=== PATIENT | female | born 2005 | race Caucasian/White ===

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

== ENCOUNTER 2024-02-03 15:37 | Emergency (ER) | payer OTHER, SELFPAY ==
[2024-02-03 15:51] VITALS: BP 115/83; PULSE 91; RESP 16; TEMP 37.3; O2SAT 98; BMI 23.5
--- NOTE | 2024-02-03 16:00 | ED_ITS ---
HPI - General Adult General Chief complaint: Back Pain/Injury Stated complaint: lower back pain Time Seen by Provider: 02/03/24 17:13 Source: patient Mode of arrival: ambulatory Limitations: no limitations History of Present Illness ED Provider: Lance Roberts PA-C HPI narrative: 18-year-old female presents to the ER for evaluation of severe right-sided flank pain, a foul smell to her urine that started late last night and worsened this morning. She reports the pain in the right flank is worse with any movement, it is constant and throbbing in nature. He has been getting worse. She reports urinary urgency and frequency along with a foul smell to her urine. She has no hematuria or dysuria. No fevers or chills. No nausea, vomiting, abdominal pain. No vaginal discharge. Denies chance of . MD complaint: Right flank pain Onset (ago): hour(s) Location: back Radiation: non-radiation Severity: severe Quality: aching Relieving factors: none Exacerbating factors: movement Treatments prior to arrival: none Related Data Previous Rx's ?Medication ?Instructions ?Recorded ibuprofen 400 mg tablet 400 mg PO Q8H PRN pain #10 tabs 02/01/21 lidocaine 5 % topical patch 1 patch topical DAILY #15 ea 02/01/21 (Lidoderm) ibuprofen 600 mg tablet 600 mg PO Q8H PRN fever or pain 02/03/24 #14 tabs levofloxacin 500 mg tablet 500 mg PO DAILY #7 tabs 02/03/24 oxycodone 5 mg tablet 5 mg PO BID PRN severe pain (scale 02/03/24 score 7-10) #4 tabs Allergies Allergy/AdvReac Type Severity Reaction Status Date / Time No Known Allergies Allergy Verified 02/03/24 15:52 Review of Systems 2 Review of Systems: Yes all other systems are reviewed and are negative [facility] Social History Social History Alcohol intake: never Patient Tobacco Use Status: Never used Tobacco Substance Use Type: Marijuana Advance Directives: No Advance Directives Information Provided: No Physical Exam ED Vital Signs: Vital Signs - 24 hr 02/03/24 15:51 Temperature 99.2 F Pulse Rate 91 Respiratory Rate 16 Blood Pressure 115/83 Pulse Oximetry 98 Oxygen Delivery Method Room Air BMI result Body Mass Index 23.5 Appearance: Alert. Oriented X3. Patient tearful and appears uncomfortable Head: normocephalic, atraumatic. Eyes: Pupils equal, round and reactive to light. ENT: Pharynx normal. No tonsillar swelling or exudate. Neck: Normal inspection. Neck supple. CVS: Normal heart rate and rhythm. Pulses normal. Respiratory: No respiratory distress. Breath sounds normal. Abdomen: Soft and nontender. +BS x4 positive CVA tenderness on the right side. Pelvic deferred Skin: Skin warm and dry. Normal skin color. Normal skin turgor. No rashes. Extremities: No lower extremity edema. No joint swelling. Neuro/psych: Oriented X 3. Grossly normal, nonfocal Course Course Course Narrative: This is a Rapid Medical Examination (RME) performed by Mercy Trevino PA-C in triage. Full HPI, ROS, assessment and treatment plan per primary provider in the Main ED. 18 yo female here for eval of right flank pain and foul odor to urine upon waking this morning. assoc nausea w/o vomiting. denies fever, chills. also reports pain under L breast on breathing in. denies chest pain, sob. no recent travel/ long car rides. + no cvat. Plan: labs, ua, u preg, cxr Medications Administered Discontinued Medications Generic Name Dose Route Start Last Admin Trade Name Coryq PRN Reason Stop Dose Admin Acetaminophen 975 mg 02/03/24 17:19 02/03/24 17:58 Acetaminophen 325 Mg Tablet PO 02/03/24 17:20 975 mg ONCE ONE Administration Ketorolac Tromethamine 30 mg 02/03/24 17:19 02/03/24 17:59 Ketorolac Tromethamine 30 Mg/Ml Vial IM 02/03/24 17:20 30 mg ONCE ONE Administration Levofloxacin 500 mg 02/03/24 17:19 02/03/24 17:58 Levofloxacin 500 Mg Tablet PO 02/03/24 17:20 500 mg ONCE ONE Administration Medical Decision Making Medical Decision Making [facility] Narrative: 18-year-old female presents to the ER for evaluation of severe right flank pain and a foul smell to her urine. She has CVA tenderness on the right side. She has no nausea or vomiting. No fever or chills. Her vital signs are stable today. She is tearful with examination. Her lab workup today shows no leukocytosis, normal renal function. Her urinalysis is positive for infection. No evidence of sepsis at this time. She was given antibiotics and pain control while in the ER with improvement in her symptoms. Holding off on imaging as she appears plenty clinically improved. Comfortable discharge home with oral antibiotics, return precautions were discussed. Differential Diagnosis Differential Diagnoses: The differential diagnosis associated with the presentation includes Acute pyelonephritis, kidney stone, UTI, acute cholecystitis, muscle strain, STI Admission/Observation Consideration of admission/observation: Escalation of care including admission/observation considered Lab Data MDM Lab Attestation statement: I reviewed the patient's lab results. No leukocytosis, normal renal function, positive UA for infection 02/03/24 16:42 02/03/24 16:42 Labs: Lab Results 02/03/24 02/03/24 Range/Units 16:40 16:42 WBC 6.7 (4.8-10.8) X10*3/uL RBC 4.12 L (4.20-5.50) X10*6/uL Hgb 12.1 (12.0-16.0) g/dl Hct 35.5 L (37.0-47.0) % MCV 86.2 (80.0-98.0) fL MCH 29.4 (27.0-33.0) pg MCHC 34.1 (31.0-35.0) g/dl RDW 11.7 (11.0-16.0) % Plt Count 354 (160-400) X10*3/uL MPV 9.5 (9.4-12.3) fL Immature Gran % (Auto) 0.3 (0.0-0.4) % Neut % (Auto) 60.9 (45-73) % Lymph % (Auto) 28.1 (20-40) % [place] % (Auto) 8.1 (2-11) % Eos % (Auto) 2.0 (0-4) % Baso % (Auto) 0.6 (0-2) % Lymph # (Auto) 1.9 (1.2-4.9) X10*3/uL [place] # (Auto) 0.5 (0.1-1.2) X10*3/uL Eos # (Auto) 0.1 (0.0-0.4) X10*3/uL Baso # (Auto) 0.0 (0.0-0.2) X10*3/uL Abs Immat Gran (auto) 0.02 (0.00-0.03) X10*3/uL Absolute Neuts (auto) 4.1 (2.0-8.3) x10*3/uL Absolute Nucleated RBC 0.000 (0.0-0.012) X10*3/uL Nucleated RBC % (auto) 0.0 (0.0-0.2) /100WBC PT 13.1 (11.1-13.3) SEC INR 1.1 (0.9-1.1) Sodium 139 (135-145) mmol/L Potassium 4.0 (3.3-5.1) mmol/L Chloride 105 (96-108) mmol/L Carbon Dioxide 27 (22-29) mmol/L Anion Gap 11 L (12-20) BUN 13 (9-16) mg/dL Creatinine 0.63 (0.5-1.4) mg/dL Estim Creat Clear Calc 108.4 Estimated GFR > 60 Random Glucose 86 (60-115) mg/dL Calcium 9.7 (8.4-10.2) mg/dL Magnesium 2.1 (1.6-2.6) mg/dL Total Bilirubin 0.4 (0.0-1.0) mg/dL AST 13 (5-31) U/L ALT 10 (0-31) U/L Alkaline Phosphatase 64 (39-117) U/L Total Protein 7.7 (6.5-8.0) g/dL Albumin 4.4 (3.5-5.0) g/dL Urine Color Yellow Urine Appearance Cloudy Urine pH 6.0 (5.0-9.0) Ur Specific [place] >= 1.030 H (1.005-1.025) Urine Protein 100 (2+) H (Neg-Trace) mg/dL Urine Glucose (UA) Negative (Negative) mg/dL Urine Ketones Trace (Negative) mg/dL Urine Blood Large (3+) H (Negative) Urine Nitrite Positive H (Negative) Ur Leukocyte Esterase Small (1+) H (Negative) Urine RBC >20 H (0-2) /HPF Urine WBC 21-50 H (0-5) /HPF Ur Squamous Epith Cells 3-5 (0-2) /HPF Urine Bacteria 1+ (None Seen) Hyaline Casts 0-2 (0-2) /LPF Urine Test NEGATIVE (NEGATIVE) External Record Review External record reviewed: Outpatient record and Prior outpatient labs Tests considered The following testing was considered but not selected: CT scan of her abdomen verses ultrasound of the right kidney were considered however patient appeared improved after initial treatment and is stable for discharge home without imaging today Prescription Management I considered prescription management with: Pain Medication and Antibiotic Critical Care Time Critical Care Time Critical Care Time: No Discharge Plan Discharge Clinical Impression: UTI (urinary tract infection) Patient Disposition: Home, Self-Care Instructions: Urinary Tract Infection in Women (DC) Additional Instructions: Your urine test showed you have a urinary tract infection. Your given 1st dose of oral antibiotics here in the emergency department. Next dose is due in 24 hours. Take the prescribed anti-inflammatory, ibuprofen, as needed for [id number] pain. Take the prescribed oxycodone as needed for severe pain only. Drink plenty of fluids and stay hydrated. No sexual activity until you have completed your treatment and all her symptoms are completely resolved. Follow-up with your doctor. If you develop new or worsening symptoms call 911 or come back to the ER for further evaluation. Prescriptions: New levofloxacin 500 mg tablet 500 mg PO DAILY Qty: 7 0RF ibuprofen 600 mg tablet 600 mg PO Q8H PRN (Reason: fever or pain) Qty: 14 0RF oxycodone 5 mg tablet 5 mg PO BID PRN (Reason: severe pain (scale score 7-10)) Qty: 4 0RF Rx Instructions: Partial Fill upon patient request. No Action ibuprofen 400 mg tablet 400 mg PO Q8H PRN (Reason: pain) Qty: 10 0RF lidocaine [Lidoderm] 5 % adhesive patch,medicated 1 patch topical DAILY Qty: 15 0RF Rx Instructions: leave on most painful area for up to 12 hrs Stand Alone Forms: Work/School Release Interventions: ED Discharge Assessment Last Done: 02/03/24 18:27 Discharge Date/Time: 02/03/24 18:27 Print Language: Slovak
[2024-02-03 16:48] LABS: MANUAL DIFF FLAG NO
[2024-02-03 16:50] LABS: Basophils Percent Auto 0.6 % (0-2); Eosinophils Absolute Auto 0.1 X10*3/uL (0.0-0.4); Hematocrit 35.5 % (37.0-47.0); Hemoglobin 12.1 g/dl (12.0-16.0); Imm Gran Abs Auto 0.02 X10*3/uL (0.00-0.03); Imm Gran Pct Auto 0.3 % (0.0-0.4); Lymphocytes Absolute Auto 1.9 X10*3/uL (1.2-4.9); Lymphocytes Percent Auto 28.1 % (20-40); Mean Corpuscular HGB Conc 34.1 g/dl (31.0-35.0); Mean Corpuscular Hemoglobin 29.4 pg (27.0-33.0); Mean Corpuscular Volume 86.2 fL (80.0-98.0); Mean Platelet Volume 9.5 fL (9.4-12.3); Monocytes Absolute Auto 0.5 X10*3/uL (0.1-1.2); Monocytes Percent Auto 8.1 % (2-11); Neutrophils Absolute Auto 4.1 x10*3/uL (2.0-8.3); Neutrophils Percent Auto 60.9 % (45-73); Platelet Count 354 X10*3/uL (160-400); Red Blood Count 4.12 X10*6/uL (4.20-5.50); Red Cell Distribution Width 11.7 % (11.0-16.0); White Blood Count 6.7 X10*3/uL (4.8-10.8)
[2024-02-03 16:53] LABS: Appearance Urine Cloudy; Color Urine Yellow; Glucose Urine UA Negative (Negative); Leukocyte Esterase Urine Small (1+) (Negative); Nitrite Urine Positive (Negative); Specific Gravity - Urine >= 1.030 (1.005-1.025); UMIC TRIGGER UACC YES; Urine Blood Large (3+) (Negative); Urine Ketones Trace mg/dL (Negative); Urine Protein 100 (2+) mg/dL (Neg-Trace)
[2024-02-03 16:54] LABS: UPreg QC Valid YES; Urine Pregnancy NEGATIVE (NEGATIVE)
[2024-02-03 16:59] LABS: Bacteria Urine 1+ (None Seen); Hyaline Casts Urine 0-2 /LPF (0-2); RBC Urine >20 /HPF (0-2); UACC Culture Trigger YES; WBC Urine 21-50 /HPF (0-5)
[2024-02-03 17:03] LABS: Alanine Aminotransferase 10 U/L (0-31); Albumin Level 4.4 g/dL (3.5-5.0); Alkaline Phosphatase 64 U/L (39-117); Anion Gap 11 (12-20); Aspartate Amino Transferase 13 U/L (5-31); Bilirubin Total 0.4 mg/dL (0.0-1.0); Blood Urea Nitrogen 13 mg/dL (9-16); Calcium 9.7 mg/dL (8.4-10.2); Carbon Dioxide 27 mmol/L (22-29); Chloride 105 mmol/L (96-108); Creatinine Clr Calc Pharmacy 108.4; Estimated Glomerular Filt Rate > 60; Glucose Random 86 mg/dL (60-115); Magnesium 2.1 mg/dL (1.6-2.6); Sodium 139 mmol/L (135-145); Total Protein 7.7 g/dL (6.5-8.0)
[2024-02-03 17:17] LABS: INTERNATIONAL NORM RATIO 1.1 (0.9-1.1); Prothrombin Time 13.1 SEC (11.1-13.3)
[2024-02-03] MEDS: Acetaminophen 325 MG TABLET 975 MG PO (17:58)
[2024-02-03] MEDS: levoFLOXacin 500 MG TABLET PO (17:58)
[2024-02-03] MEDS: Ketorolac Tromethamine 30 MG/ML VIAL IM (17:59)
[2024-02-03 18:27] VITALS: BP 115/83; PULSE 91; RESP 16; TEMP 37.3; O2SAT 98
== END 2024-02-03 18:27 | disposition home or self-care (01) ==
PROVIDERS: Physician Assistant Medical; Emergency Provider Emergency Medicine
DX: N39.0 Urinary tract infection, site not specified (principal); B96.20 Unspecified Escherichia coli [E. coli] as the cause of diseases classified elsewhere; R07.9 Chest pain, unspecified
CPT/HCPCS: 36415; 80053; 81001; 81025; 83735; 85025; 85610; 87086; 87088; 87186; 96372; 99283; 99284; J1885

== ENCOUNTER 2024-10-16 18:08 | Emergency (ER) | payer SELFPAY ==
[2024-10-16 18:31] VITALS: BP 119/74; PULSE 97; RESP 16; TEMP 36.7; O2SAT 97; BMI 23.5
--- NOTE | 2024-10-16 18:32 | ED_ITS ---
HPI - General Adult General Chief complaint: General Medical Stated complaint: bad cramps Time Seen by Provider: 10/16/24 22:08 Source: patient Mode of arrival: ambulatory Limitations: no limitations History of Present Illness ED Provider: DR. Austin HPI narrative: 19-year-old female presented with lower abdominal cramps, frequency urination, and and observed white creamy thick vaginal for the past few days. Patient had a new sexual partner for the past month has been practicing unprotected sex with him, patient stated that STD is not likely but like to be tested for. Patient had of chlamydia infection at age of 16 that patient claimed it was treated sufficiently. Last bowel movement was at this morning was normal, never had intra-abdominal surgery, no nausea, no vomiting, no fever, no chills. Related Data Previous Rx's ?Medication ?Instructions ?Recorded ibuprofen 400 mg tablet 400 mg PO Q8H PRN pain #10 tabs 02/01/21 lidocaine 5 % topical patch 1 patch topical DAILY #15 ea 02/01/21 (Lidoderm) ibuprofen 600 mg tablet 600 mg PO Q8H PRN fever or pain 02/03/24 #14 tabs levofloxacin 500 mg tablet 500 mg PO DAILY #7 tabs 02/03/24 oxycodone 5 mg tablet 5 mg PO BID PRN severe pain (scale 02/03/24 score 7-10) #4 tabs doxycycline hyclate 100 mg tablet 100 mg PO BID #14 tabs 10/16/24 Allergies Allergy/AdvReac Type Severity Reaction Status Date / Time No Known Allergies Allergy Verified 10/16/24 18:32 Review of Systems 2 Review of Systems: All other systems are reviewed and are negative Constitutional: Reports as per HPI and Reports no additional constitutional complaints Eyes: Reports as per HPI and Reports no additional eye complaints Reports system reviewed and no additional complaints, except as documented Cardiovascular: Reports as per HPI and Reports no additional cardiovascular complaints Respiratory: Reports as per HPI and Reports no additional respiratory complaints Gastrointestinal: Reports as per HPI and Reports no additional gastrointestinal complaints Genitourinary: Reports no additional female genitourinary complaints Musculoskeletal: Reports no additional musculoskeletal complaints Skin/Breast: Reports system reviewed and no additional complaints, except as docu Psychiatric: Reports no additional psychiatric complaints Endocrine: Reports no additional endocrine complaints Hematologic/Lymphatic: Reports no additional hematologic/lymphatic complaints Allergic/Immunologic: Reports no additional allergic/immunologic complaints Reports system reviewed and no additional complaints, except as documented and Reports Abnormal speech present [facility] Social History Social History Alcohol intake: never Patient Tobacco Use Status: Never used Tobacco Smoked in Last 30 Days: No Use of substances other than those prescribed or required for medical reasons: Unknown Substance Use Type: Marijuana Advance Directives: No Patient : No Physical Exam ED Vital Signs: Vital Signs - 24 hr 10/16/24 18:31 10/16/24 21:23 Temperature 98.1 F 98.7 F Pulse Rate 97 102 H Respiratory Rate 16 16 Blood Pressure 119/74 131/83 Pulse Oximetry 97 100 Oxygen Delivery Method Room Air Room Air BMI result Body Mass Index 23.5 Appearance: Alert. Oriented X3. No acute distress. Head: Normal external exam. Normocephalic. Atraumatic. No Tovar signs noted. No raccoon eyes noted Eyes: PERRLA. EOMI. Conjunctiva and sclera normal. Eyelids normal. ENT: TM's Normal. Pharynx normal. Uvula midline. Moist mucous membranes. No trismus noted. No drooling noted. No muffled voice noted. Neck: Normal inspection. Neck supple. FROM. No adenopathy. Thyroid Normal. No meningeal signs. No neck mass noted. CVS: Normal heart rate and rhythm. Heart sound normal. No murmurs noted. Pulses normal throughout. Respiratory: No respiratory distress. Painless inspiration. Breath sounds normal. No wheezes/rales/rhonchi noted. Chest nontender. No accessory muscle usage noted or decreased air movement noted. Abdomen: Soft and nontender. Bowel sounds normal in all 4 quadrants. No distention noted. No organomegaly noted. No visible injury noted. Pelvic exam: In the presence of RN female title assistant in room patient had a pelvic exam which revealed a wide creamy discharge from the vagina, no rash or vesicle was observed, no tenderness, no CMT. Back: No CVA tenderness. Full range of motion noted. Skin: Skin warm and dry. Normal skin color. Normal skin turgor. No rashes/lesions/lacerations noted. Extremities: No lower extremity edema. Extremities exhibit normal range of motion. Extremities nontender. Neuro: Oriented X 3. Cranial nerve exam: II-XII are grossly intact No motor deficit. No sensory deficit. Reflexes normal. Course Course Course Narrative: This is a rapid medical exam performed by Amna Dumont NP: Additional HPI, ROS, PE not included below will be deferred to primary provider. Patient is a 19-year-old female presenting to the ED with complaint of lower abdominal cramping and milky white vaginal discharge x 5 days. LMP end of august into September. Reports new sexual partner, would like to be tested for STI. Urinary frequency. Plan: UA, Upreg, labs Reevaluation(s) Reevaluation #1: Urinary symptoms with vaginal discharge, and will be tested for syphilis, HIV, GC, and chlamydia. Because patient has a new partner and also history of chlamydia will initiate treatment tonight and referred to OBGYN Dr. Winter to follow-up with the patient. Time: 22:36 Medical Decision Making Differential Diagnosis Differential Diagnoses: The differential diagnosis associated with the presentation includes (UTI, pyelonephritis, HIV, hepatitis, GC, chlamydia.) Admission/Observation Consideration of admission/observation: Escalation of care including admission/observation considered Lab Data [facility] Lab Attestation statement: I reviewed the patient's lab results. 10/16/24 18:50 10/16/24 18:50 Labs: Lab Results 10/16/24 Range/Units 18:50 WBC 7.2 (4.8-10.8) X10*3/uL RBC 4.25 (4.20-5.50) X10*6/uL Hgb 12.0 (12.0-16.0) g/dl Hct 36.0 L (37.0-47.0) % MCV 84.7 (80.0-98.0) fL MCH 28.2 (27.0-33.0) pg MCHC 33.3 (31.0-35.0) g/dl RDW 12.6 (11.0-16.0) % Plt Count 335 (160-400) X10*3/uL MPV 9.7 (9.4-12.3) fL Immature Gran % (Auto) 0.1 (0.0-0.4) % Neut % (Auto) 69.2 (45-73) % Lymph % (Auto) 22.3 (20-40) % [place] % (Auto) 7.4 (2-11) % Eos % (Auto) 0.4 (0-4) % Baso % (Auto) 0.6 (0-2) % Lymph # (Auto) 1.6 (1.2-4.9) X10*3/uL [place] # (Auto) 0.5 (0.1-1.2) X10*3/uL Eos # (Auto) 0.0 (0.0-0.4) X10*3/uL Baso # (Auto) 0.0 (0.0-0.2) X10*3/uL Abs Immat Gran (auto) 0.01 (0.00-0.03) X10*3/uL Absolute Neuts (auto) 5.0 (2.0-8.3) x10*3/uL Absolute Nucleated RBC 0.000 (0.0-0.012) X10*3/uL Nucleated RBC % (auto) 0.0 (0.0-0.2) /100WBC Sodium 141 (135-145) mmol/L Potassium 3.4 (3.3-5.1) mmol/L Chloride 104 (96-108) mmol/L Carbon Dioxide 27 (22-29) mmol/L Anion Gap 13 (12-20) BUN 9 (9-16) mg/dL Creatinine 0.64 (0.5-1.4) mg/dL Estim Creat Clear Calc 121.0 Estimated GFR > 60 Random Glucose 100 (60-115) mg/dL Calcium 9.6 (8.4-10.2) mg/dL Beta HCG, Quant < 2 mIU/mL Urine Color Yellow Urine Appearance Clear Urine pH 6.0 (5.0-9.0) Ur Specific [place] 1.015 (1.005-1.025) Urine Protein Negative (Neg-Trace) mg/dL Urine Glucose (UA) Negative (Negative) mg/dL Urine Ketones 15 (Negative) mg/dL Urine Blood Moderate (2+) H (Negative) Urine Nitrite Negative (Negative) Ur Leukocyte Esterase Small (1+) H (Negative) Urine RBC 11-20 H (0-2) /HPF Urine WBC 0-5 (0-5) /HPF Ur Squamous Epith Cells 3-5 (0-2) /HPF Urine Bacteria None Seen (None Seen) Hyaline Casts 0-2 (0-2) /LPF Discharge Plan Discharge Clinical Impression: Concern about STD in female without diagnosis Patient Disposition: Home, Self-Care Instructions: Safe Sex Practices for Adolescents (ED) Prescriptions: New doxycycline hyclate 100 mg tablet 100 mg PO BID Qty: 14 0RF No Action ibuprofen 400 mg tablet 400 mg PO Q8H PRN (Reason: pain) Qty: 10 0RF lidocaine [Lidoderm] 5 % adhesive patch,medicated 1 patch topical DAILY Qty: 15 0RF Rx Instructions: leave on most painful area for up to 12 hrs levofloxacin 500 mg tablet 500 mg PO DAILY Qty: 7 0RF ibuprofen 600 mg tablet 600 mg PO Q8H PRN (Reason: fever or pain) Qty: 14 0RF oxycodone 5 mg tablet 5 mg PO BID PRN (Reason: severe pain (scale score 7-10)) Qty: 4 0RF Rx Instructions: Partial Fill upon patient request. Referrals: Darin Winter MD [Physician] - Print Language: Czech
[2024-10-16 19:07] LABS: MANUAL DIFF FLAG NO
[2024-10-16 19:10] LABS: Appearance Urine Clear; Color Urine Yellow; Glucose Urine UA Negative (Negative); Leukocyte Esterase Urine Small (1+) (Negative); Nitrite Urine Negative (Negative); Specific Gravity - Urine 1.015 (1.005-1.025); UMIC TRIGGER UACC YES; Urine Blood Moderate (2+) (Negative); Urine Ketones 15 mg/dL (Negative); Urine Protein Negative (Neg-Trace)
[2024-10-16 19:15] LABS: Basophils Percent Auto 0.6 % (0-2); Eosinophils Percent Auto 0.4 % (0-4); Imm Gran Abs Auto 0.01 X10*3/uL (0.00-0.03); Imm Gran Pct Auto 0.1 % (0.0-0.4); Lymphocytes Absolute Auto 1.6 X10*3/uL (1.2-4.9); Lymphocytes Percent Auto 22.3 % (20-40); Mean Corpuscular HGB Conc 33.3 g/dl (31.0-35.0); Mean Corpuscular Hemoglobin 28.2 pg (27.0-33.0); Mean Corpuscular Volume 84.7 fL (80.0-98.0); Mean Platelet Volume 9.7 fL (9.4-12.3); Monocytes Absolute Auto 0.5 X10*3/uL (0.1-1.2); Monocytes Percent Auto 7.4 % (2-11); Neutrophils Percent Auto 69.2 % (45-73); Platelet Count 335 X10*3/uL (160-400); Red Blood Count 4.25 X10*6/uL (4.20-5.50); Red Cell Distribution Width 12.6 % (11.0-16.0); White Blood Count 7.2 X10*3/uL (4.8-10.8)
[2024-10-16 19:30] LABS: Anion Gap 13 (12-20); Blood Urea Nitrogen 9 mg/dL (9-16); Calcium 9.6 mg/dL (8.4-10.2); Carbon Dioxide 27 mmol/L (22-29); Chloride 104 mmol/L (96-108); Estimated Glomerular Filt Rate > 60; Glucose Random 100 mg/dL (60-115); Potassium 3.4 mmol/L (3.3-5.1); Sodium 141 mmol/L (135-145)
[2024-10-16 19:31] LABS: HCG Quantitative < 2 mIU/mL
[2024-10-16 19:41] LABS: Bacteria Urine None Seen (None Seen); Hyaline Casts Urine 0-2 /LPF (0-2); UACC Culture Trigger YES; WBC Urine 0-5 /HPF (0-5)
[2024-10-16 21:23] VITALS: BP 131/83; PULSE 102; RESP 16; TEMP 37.1; O2SAT 100
--- OUTSIDE RECORDS SUMMARY | 2024-10-16 21:38 | XMS_ITS | Clinical Summary ---
Author Organization [employer] Address [address] [place] [address] Care Team Providers Care [employer] Supervisor Name Role Phone Unavailable Primary Care Provider Unavailabl e Allergies No known active allergies Social History Tobacco Use Types Packs/Day Years Used Date Smoking Tobacco: Never Assessed Comments Unknown Sex and Gender Information Value Date Recorded Sex Assigned at Female 04/27/2022 10:26 AM EDT Legal Sex Female 10:26 AM EDT Gender Identity Female 06/15/2022 8:38 AM EST Sexual Orientation Straight 12/09/2022 3: 33 PM EDT Plan of Treatment Health Maintenance Due Date Last Done Comments Chlamydia and Gonorrhea Screening 2004 Depression Screening 2004 HIV Screening 2004 SDOH Screening 2004 Alcohol/Substance Use Screening 2016 Tobacco Screening 2016 Family Planning (PISQ) 2019 HPV Vaccines (1 - 3-dose series) 2019 Hepatitis C Screening 2022 DTaP/Tdap/Td Vaccines (1 - Tdap) 2023 Hepatitis B Vaccines (1 of 3 - 19+ 3-dose series) 2023 COVID-19 Vaccine (1 - 2023-2 5 season) 2024 Influenza Vaccine (#1) 2024 Zoster Vaccines (1 of 2) 2054 RSV Patients and Pa tients Aged 60 years or older (1 - 1-dose 75+ series) 2079 HIB Vaccines Aged Out No longer eligi ble based on patient's age to complete this topic Hepatitis A Vaccines Aged Out No long er eligible based on patient's age to complete this topic IPV Vaccines Aged Out No longer eligi ble based on patient's age to complete this topic Meningococcal Vaccine Aged Out No jeffrey navarro eligible based on patient's age to complete this topic Pneumococcal Vaccine: Pediat rics (0 to 5 Years) and At-Risk Patients (6 to 49) Years) Aged Out No longer eligible b ased on patient's age to complete this topic RSV under 20 months Aged Out No longe r eligible based on patient's age to complete this topic Rotavirus Vaccines Aged Out No longer eligible based on patient's age to complete this topic Insurance [employer] Member Subscriber Plan / Payer (Ef fective 2022-Present) Name:Evelyn Babcock Relation to Subscriber:Self Name:Evelyn Babcock Payer ID:Not on file Group ID:Not on file Type:Medicaid Address: [address] STANDARD
[2024-10-16] MEDS: Doxycycline Monohydrate 100 MG CAPSULE PO (22:48)
[2024-10-16] MEDS: cefTRIAXone sodium 500 MG VIAL IM (22:49)
[2024-10-16 22:54] VITALS: BP 00/00; PULSE 65; RESP 16; TEMP 37.1; O2SAT 95
[2024-10-17 08:33] LABS: Syphilis Screen Nonreactive (Nonreactive)
[2024-10-17 08:34] LABS: HBS Num1 4.25 mIU/mL (0-7.99); HBc Num1 0.31 S/CO (0.00-0.79); HBsAGNum1 0.57 S/CO (0.00-0.99); Hepatitis A Antibody IgM 0.17 Index (0-0.79); Hepatitis B Core Antibody Nonreactive (Nonreactive); Hepatitis B Surface Antigen Negative (Negative); ~HepC Num1 0.26 S/CO (0.00-0.79); ~Hepatitis A Antibody IgM Nonreactive (Nonreactive); ~Hepatitis B Surface Antibody NONREACTIVE (Nonreactive); ~Hepatitis C Antibody Nonreactive (Nonreactive)
[2024-10-17 09:03] LABS: CT PCR NOT DETECTED (Not Detect.); NG PCR NOT DETECTED (Not Detect.)
[2024-10-17 09:30] LABS: HIV AB/AG Nonreactive (Nonreactive)
== END 2024-10-16 22:56 | disposition home or self-care (01) ==
PROVIDERS: Registered Nurse Emergency; Emergency Provider Emergency Medicine
DX: R25.2 Cramp and spasm (principal); R35.0 Frequency of micturition; R10.2 Pelvic and perineal pain; Z20.2 Contact with and (suspected) exposure to infections with a predominantly sexual mode of transmission; Z79.899 Other long term (current) drug therapy
CPT/HCPCS: 36415; 80048; 81001; 84702; 85025; 86704; 86706; 86709; 86780; 86803; 87086; 87340; 87389; 87491; 87591; 96372; 99284; J0696

== ENCOUNTER 2024-11-11 20:23 | Emergency (ER) | payer OTHER, SELFPAY ==
--- NOTE | ~2024-11-11 | US_ITS ---
CLINICAL HISTORY: 6-7 wks by dates, pain and bleeding, HCG 29,000 US OB 1st Trimester transabdominal and transvaginal Comparison: None Findings: Single intrauterine . CRL: 0.36 cm. EGA: 6 weeks 1 day. EDINSON: 07/06/2025. Previously established gestational age: 6 weeks 5 day. Normal yolk sac . Cardiac activity: 127 bpm. No subchorionic bleed. Right ovary measures 3.8 x 3.1 x 2.3 cm and contains a 2.2 cm involuting cyst. Left ovary measures 1.9 x 1.7 x 1.5 cm and is normal in morphology. IMPRESSION: Single living intrauterine estimated six weeks 1 day gestational age by today's ultrasound criteria. This document has been electronically signed by: Cody Solorzano MD on 11/12/2024 00:15:31
--- NOTE | 2024-11-11 20:35 | ED.ABDPAIN ---
HPI - Abdominal Pain General Chief Complaint: Vaginal Bleeding Stated Complaint: cramps/ maybe 4wks? Time Seen by Provider: 11/11/24 22:04 History of Present Illness ED Provider: Aleksandra HAMPTON narrative: The patient is a 19-year-old female who had a positive home test on October 26. The start of her last menstrual period was on September 25. About 5 days ago she started to experience intermittent pelvic cramping. This was initially not associated with any other symptoms or any bleeding. However last night she had some vaginal bleeding and used pads throughout the night. The bleeding seemed to todd this morning as did the cramps but the cramps began this evening again and so she came to the emergency department. The patient has not yet had any care. She has an appointment on Wednesday for her 1st the at the [facility]. No fever, sweats, chills. She has never been before. She had been hoping to get . Related Data Previous Rx's ?Medication ?Instructions ?Recorded ibuprofen 400 mg tablet 400 mg PO Q8H PRN pain #10 tabs 02/01/21 lidocaine 5 % topical patch 1 patch topical DAILY #15 ea 02/01/21 (Lidoderm) ibuprofen 600 mg tablet 600 mg PO Q8H PRN fever or pain 02/03/24 #14 tabs levofloxacin 500 mg tablet 500 mg PO DAILY #7 tabs 02/03/24 oxycodone 5 mg tablet 5 mg PO BID PRN severe pain (scale 02/03/24 score 7-10) #4 tabs doxycycline hyclate 100 mg tablet 100 mg PO BID #14 tabs 10/16/24 Allergies Allergy/AdvReac Type Severity Reaction Status Date / Time No Known Allergies Allergy Verified 11/11/24 20:39 Review of Systems Review of Systems Yes all other systems are reviewed and are negative [facility] Social History Social History Alcohol intake: never Patient Tobacco Use Status: Never used Tobacco Smoked in Last 30 Days: No Use of substances other than those prescribed or required for medical reasons: No Substance Use Type: Marijuana Advance Directives: No Advance Directives Information Provided: No Patient : Yes Physical Exam ED Vital Signs: Vital Signs - 24 hr 11/11/24 20:36 11/11/24 22:07 11/12/24 00:33 Temperature 98.2 F 98.0 F 98.1 F Pulse Rate 103 H 91 82 Respiratory Rate 18 18 16 Blood Pressure 118/76 127/78 118/69 Pulse Oximetry 97 100 99 Oxygen Delivery Method Room Air Room Air Room Air 11/12/24 00:55 Temperature 98.1 F Pulse Rate 82 Respiratory Rate 16 Blood Pressure 118/69 Pulse Oximetry 99 Oxygen Delivery Method Room Air BMI result Body Mass Index 25.7 Const Other: The patient is a thin 19-year-old woman who was awake and alert. She does not appear in obvious acute distress HENMT Other: Face is symmetrical, mucous membranes are moist. Eyes General: appearance normal, both eyes and all related structures Neck Neck: Yes normal visual inspection and Yes full ROM Resp Effort & Inspection: normal respiratory effort Auscultation: clear to auscultation bilaterally Cardio Rate: regular rate Rhythm: regular rhythm Heart sounds: S1 normal heart sound present and S2 normal heart sound present GI Other: The abdomen is soft and nontender. There was no lower abdominal tenderness. Skin Other: Skin was dry and unremarkable Neuro Other: The patient is awake and alert, pleasant cooperative. Mental status is normal. Cranial nerves are grossly intact. She moves her extremities normally and appropriately. 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 deferred additional HPI, ROS, PE to primary provider. 19yo female with history of asthma here with one week of pelvic cramping, small amounts of vaginal bleeding since yesterday. Did home test which was positive, confirmed by [facility]. This is her first , First appt with [facility] on Wednesday. Has not had US to confirm IUP. Thinks she is around 6 weeks . LMP 09/25. Will obtain labs, UA, RH VSS Medical Decision Making Medical Decision Making MDM Narrative: The patient is a 19-year-old female who was with her 1st . Her last menstrual period began on September 25 which would give her an estimated gestational age of 6 weeks, 5 days. She presents with episodes of pelvic cramping intermittently over the last few days. She has also had some intermittent vaginal spotting which was somewhat worse last night. She felt better during the day today but had a recurrence of cramping this evening. Clinically the patient looks well. The patient is afebrile. Blood pressure is stable. Her heart rate at triage was 103, later was 82. Respiratory rate is normal. Oxygen saturations are excellent. She has a white count of 7.1 with a normal differential. Hemoglobin 11.8. Her beta hCG is 29,884. Blood type is Rh negative. A pelvic ultrasound shows a single living intrauterine estimated at 6 weeks 1 day gestational age by today's ultrasound criteria. There was no subchorionic bleeding. heart rate was measured at 127. Given that the patient's ultrasound shows a live intrauterine I do not think there is any acute intervention required. The patient is Rh negative and describes having had some vaginal spotting. Since she is under 12 weeks I do not think any decision about RhoGAM needs to be made tonight. She has an appointment on Wednesday for her 1st care appointment. I think she is appropriate for discharge to keep this appointment. Lab Data 11/11/24 20:46 11/11/24 20:46 Labs: Lab Results 11/11/24 Range/Units 20:46 WBC 7.1 (4.8-10.8) X10*3/uL RBC 4.09 L (4.20-5.50) X10*6/uL Hgb 11.8 L (12.0-16.0) g/dl Hct 33.8 L (37.0-47.0) % MCV 82.6 (80.0-98.0) fL MCH 28.9 (27.0-33.0) pg MCHC 34.9 (31.0-35.0) g/dl RDW 12.1 (11.0-16.0) % Plt Count 391 (160-400) X10*3/uL MPV 9.5 (9.4-12.3) fL Immature Gran % (Auto) 0.4 (0.0-0.4) % Neut % (Auto) 63.3 (45-73) % Lymph % (Auto) 27.2 (20-40) % Caroline % (Auto) 7.5 (2-11) % Eos % (Auto) 0.8 (0-4) % Baso % (Auto) 0.8 (0-2) % Lymph # (Auto) 1.9 (1.2-4.9) X10*3/uL Caroline # (Auto) 0.5 (0.1-1.2) X10*3/uL Eos # (Auto) 0.1 (0.0-0.4) X10*3/uL Baso # (Auto) 0.1 (0.0-0.2) X10*3/uL Abs Immat Gran (auto) 0.03 (0.00-0.03) X10*3/uL Absolute Neuts (auto) 4.5 (2.0-8.3) x10*3/uL Absolute Nucleated RBC 0.000 (0.0-0.012) X10*3/uL Nucleated RBC % (auto) 0.0 (0.0-0.2) /100WBC Sodium 138 (135-145) mmol/L Potassium 3.6 (3.3-5.1) mmol/L Chloride 106 (96-108) mmol/L Carbon Dioxide 22 (22-29) mmol/L Anion Gap 14 (12-20) BUN 9 (9-16) mg/dL Creatinine 0.51 (0.5-1.4) mg/dL Estim Creat Clear Calc 142.2 Estimated GFR > 60 Random Glucose 85 (60-115) mg/dL Calcium 9.6 (8.4-10.2) mg/dL Total Bilirubin 0.5 (0.0-1.0) mg/dL Direct Bilirubin 0.2 (0.0-0.5) mg/dL AST 16 (5-31) U/L ALT 17 (0-31) U/L Alkaline Phosphatase 53 (39-117) U/L Total Protein 7.6 (6.5-8.0) g/dL Albumin 4.5 (3.5-5.0) g/dL Beta HCG, Quant 11430 mIU/mL Urine Color Yellow Urine Appearance Turbid Urine pH 7.0 (5.0-9.0) Ur Specific [place] 1.020 (1.005-1.025) Urine Protein Negative (Neg-Trace) mg/dL Urine Glucose (UA) Negative (Negative) mg/dL Urine Ketones 80 (Negative) mg/dL Urine Blood Moderate (2+) H (Negative) Urine Nitrite Negative (Negative) Ur Leukocyte Esterase Trace H (Negative) Urine RBC >20 H (0-2) /HPF Urine WBC 0-5 (0-5) /HPF Ur Squamous Epith Cells 3-5 (0-2) /HPF Urine Bacteria None Seen (None Seen) Hyaline Casts 0-2 (0-2) /LPF Urine Test POSITIVE H (NEGATIVE) Blood Type B Negative Medications Administered Discontinued Medications Generic Name Dose Route Start Last Admin Trade Name Coryq PRN Reason Stop Dose Admin Acetaminophen 975 mg 11/11/24 22:54 11/11/24 22:56 Acetaminophen 325 Mg Tablet PO 11/11/24 22:55 975 mg ONCE ONE Administration Discharge Plan Discharge Clinical Impression: Pelvic cramping, Vaginal bleeding, 6 weeks gestation of Patient Disposition: Home, Self-Care Additional Instructions: Your ultrasound today shows that you have a single live with estimated gestational age of 6 weeks and 1 day. Your estimated date of delivery is 07/06/2025. Since your condition looks stable today please plan on following up with your 1st appointment tomorrow on Wednesday as scheduled. Please let them know about this visit. Your blood type is B negative. Please let them know at your appointment about your blood type. This will be relevant in the future. Return to the emergency room if significantly worse. Prescriptions: No Action ibuprofen 400 mg tablet 400 mg PO Q8H PRN (Reason: pain) Qty: 10 0RF lidocaine [Lidoderm] 5 % adhesive patch,medicated 1 patch topical DAILY Qty: 15 0RF Rx Instructions: leave on most painful area for up to 12 hrs doxycycline hyclate 100 mg tablet 100 mg PO BID Qty: 14 0RF levofloxacin 500 mg tablet 500 mg PO DAILY Qty: 7 0RF ibuprofen 600 mg tablet 600 mg PO Q8H PRN (Reason: fever or pain) Qty: 14 0RF oxycodone 5 mg tablet 5 mg PO BID PRN (Reason: severe pain (scale score 7-10)) Qty: 4 0RF Rx Instructions: Partial Fill upon patient request. Referrals: [facility] [Provider Group] Interventions: ED Discharge Assessment Last Done: 11/12/24 00:55 Discharge Date/Time: 11/12/24 00:56 Print Language: Mexican
[2024-11-11 20:36] VITALS: BP 118/76; PULSE 103; RESP 18; TEMP 36.8; O2SAT 97; BMI 25.7
--- OUTSIDE RECORDS SUMMARY | 2024-11-11 20:49 | XMS_ITS | Clinical Summary ---
Author Organization [employer] Address [address] [place] [address] Care Team Providers Care Emergency Room Doctor Name Role Phone Unavailable Primary Care Provider [...] HPV Vaccines (1 - 3-dose series) 2019 Meningococcal B Vaccine (1 o f 2 - Standard) 2020 Hepatitis C Screening 2022 DTaP/Tdap/Td Vaccines (1 [...] patient's age to complete this topic Insurance [employer] C3 Member Subscriber Plan / Payer (Ef fective 2022-Present) Name:Evelyn Babcock Relation to Subscriber:Self Name:Evelyn Babcock Payer ID:Not on file Group ID:Not on file Type:Medicaid Address: [place] [address] [place] [address] STANDARD Member Subscriber Plan / Payer (Ef fective 2022-Present) Name:Evelyn Babcock Relation to Subscriber:Self Name:Evelyn Babcock Payer ID:Not on file Group ID:Not on file Type:Medicaid Address: [address]
--- OUTSIDE RECORDS SUMMARY | 2024-11-11 20:49 | XMS_ITS | Clinical Summary ---
Author Organization [facility] Address [address] [place] [address] Phone Care Team Providers Care Machine Packer Name Role Phone Physician, No Pcp Primary Care Provider Unavaila ble Social History Tobacco Use Types Packs/Day Years Used Date Smoking Tobacco: Never Assessed Comments Unknown Sex and Gender Information Value Date Recorded Sex Assigned at Not on file Legal Sex Female 1:49 PM EDT Gender Identity Not on file Sexual Orientation Not on file Plan of Treatment Upcoming Encounters Date Type Department Care Team ([facility] st Contact Info) Description 11/13/2024 10:30 AM EDT Office Visit Obstetrics and Gynecology - [id number] [place] [address] Deepika Mcgee, [facility] [address] [place] [address] Health Maintenance Due Date Last Done Comments Gonorrhea/Chlamydia Screening 2004 Varicella Vaccines (1 of 2 - 13+ 2-dose series) 2017 HPV Vaccines (1 - 3-dose series) 2019 Meningococcal B Vaccine (1 o f 2 - Standard) 2020 DTaP,Tdap,and Td Vaccines (1 - Tdap) 2023 Hepatitis B Vaccines (1 of 3 - 19+ 3-dose series) 2023 COVID-19 Vaccine (1 - 2023-2 5 season) 2024 Annual Well Child Visit (3-2 1 years old) 11/03/2024 Depression Screening 11/03/2024 HIV Screening 11/03/2024 Hepatitis C Screening 11/03/2024 Social Influencers of Health Screening 11/03/2024 Influenza Vaccine (Season Ended) 2025 HIB Vaccines Aged Out No longer eligi ble based on patient's age to complete this topic Hepatitis A Vaccines Aged Out No long er eligible based on patient's age to complete this topic IPV Vaccines Aged Out No longer eligi ble based on patient's age to complete this topic MMR Vaccines Aged Out No longer eligi ble based on patient's age to complete this topic Meningococcal ACWY Vaccine Aged Out N o longer eligible based on patient's age to complete this topic Pneumococcal Vaccine: Pediat rics (0 to 5 Years) and At-Risk Patients (6 to 64 Years) Aged Out No longer eligible b ased on patient's age to complete this topic RSV Immunization Patients Un stephania 20 months Aged Out No longer eligible b ased on patient's age to complete this topic Insurance [facility] Care Teams Machine Packer Relationship Specialty Start Date End Date Physician, No Pcp PCP - General 11/10/24
[2024-11-11 20:55] LABS: MANUAL DIFF FLAG NO
[2024-11-11 20:56] LABS: Basophils Absolute Auto 0.1 X10*3/uL (0.0-0.2); Basophils Percent Auto 0.8 % (0-2); Eosinophils Absolute Auto 0.1 X10*3/uL (0.0-0.4); Eosinophils Percent Auto 0.8 % (0-4); Hematocrit 33.8 % (37.0-47.0); Hemoglobin 11.8 g/dl (12.0-16.0); Imm Gran Abs Auto 0.03 X10*3/uL (0.00-0.03); Imm Gran Pct Auto 0.4 % (0.0-0.4); Lymphocytes Absolute Auto 1.9 X10*3/uL (1.2-4.9); Lymphocytes Percent Auto 27.2 % (20-40); Mean Corpuscular HGB Conc 34.9 g/dl (31.0-35.0); Mean Corpuscular Hemoglobin 28.9 pg (27.0-33.0); Mean Corpuscular Volume 82.6 fL (80.0-98.0); Mean Platelet Volume 9.5 fL (9.4-12.3); Monocytes Absolute Auto 0.5 X10*3/uL (0.1-1.2); Monocytes Percent Auto 7.5 % (2-11); Neutrophils Absolute Auto 4.5 x10*3/uL (2.0-8.3); Neutrophils Percent Auto 63.3 % (45-73); Platelet Count 391 X10*3/uL (160-400); Red Blood Count 4.09 X10*6/uL (4.20-5.50); Red Cell Distribution Width 12.1 % (11.0-16.0); White Blood Count 7.1 X10*3/uL (4.8-10.8)
[2024-11-11 20:57] LABS: Appearance Urine Turbid; Color Urine Yellow; Glucose Urine UA Negative (Negative); Leukocyte Esterase Urine Trace (Negative); Nitrite Urine Negative (Negative); UMIC TRIGGER UACC YES; UPreg QC Valid YES; Urine Blood Moderate (2+) (Negative); Urine Ketones 80 mg/dL (Negative); Urine Pregnancy POSITIVE (NEGATIVE); Urine Protein Negative (Neg-Trace)
[2024-11-11 21:00] LABS: Bacteria Urine None Seen (None Seen); Hyaline Casts Urine 0-2 /LPF (0-2); RBC Urine >20 /HPF (0-2); WBC Urine 0-5 /HPF (0-5)
[2024-11-11 21:34] LABS: Alanine Aminotransferase 17 U/L (0-31); Albumin Level 4.5 g/dL (3.5-5.0); Alkaline Phosphatase 53 U/L (39-117); Anion Gap 14 (12-20); Aspartate Amino Transferase 16 U/L (5-31); Bilirubin Direct 0.2 mg/dL (0.0-0.5); Bilirubin Total 0.5 mg/dL (0.0-1.0); Blood Urea Nitrogen 9 mg/dL (9-16); Calcium 9.6 mg/dL (8.4-10.2); Carbon Dioxide 22 mmol/L (22-29); Chloride 106 mmol/L (96-108); Creatinine Clr Calc Pharmacy 142.2; Estimated Glomerular Filt Rate > 60; Glucose Random 85 mg/dL (60-115); Potassium 3.6 mmol/L (3.3-5.1); Sodium 138 mmol/L (135-145); Total Protein 7.6 g/dL (6.5-8.0)
[2024-11-11 21:52] LABS: HCG Quantitative 29884 mIU/mL
[2024-11-11 22:07] VITALS: BP 127/78; PULSE 91; RESP 18; TEMP 36.7; O2SAT 100
[2024-11-11] MEDS: Acetaminophen 325 MG TABLET 975 MG PO (22:56)
[2024-11-12 00:33] VITALS: BP 118/69; PULSE 82; RESP 16; TEMP 36.7; O2SAT 99
[2024-11-12 00:55] VITALS: BP 118/69; PULSE 82; RESP 16; TEMP 36.7; O2SAT 99
== END 2024-11-12 00:56 | disposition home or self-care (01) ==
PROVIDERS: Nurse Practitioner Family; Emergency Provider Emergency Medicine
DX: O26.851 Spotting complicating pregnancy, first trimester (principal); Z3A.01 Less than 8 weeks gestation of pregnancy; R10.9 Unspecified abdominal pain
CPT/HCPCS: 36415; 76801; 76817; 80048; 80076; 81001; 81025; 84702; 85025; 86900; 86901; 99284

== ENCOUNTER → 2024-11-11 22:19 | Outpatient (BNV) | payer OTHER, SELFPAY | PROVIDERS: Emergency Provider Emergency Medicine; Visit Provider Radiology Diagnostic Radiology | DX: O26.851 Spotting complicating pregnancy, first trimester (principal); Z3A.01 Less than 8 weeks gestation of pregnancy | CPT/HCPCS: 76801; 76817 ==

== ENCOUNTER 2025-01-19 01:18 | Emergency (ER) | payer OTHER, SELFPAY ==
[2025-01-19 01:27] VITALS: BP 124/71; PULSE 94; RESP 20; TEMP 36.9; O2SAT 99; BMI 23.5
--- NOTE | 2025-01-19 02:08 | ED_ITS ---
HPI - Abdominal Pain General Chief Complaint: Abdominal Pain Stated Complaint: 4 months - fell Time Seen by Provider: 01/19/25 01:54 History of Present Illness ED Provider: Abelino Miguel MD HPI narrative: [age] female proximally 16 weeks she fell on a bed inadvertently tonight just before arrival onto the left side. No pain or vaginal bleeding concerned about the . Reports no fever or dysuria but mild L lower back pain. Related Data Previous Rx's ?Medication ?Instructions ?Recorded ibuprofen 400 mg tablet 400 mg PO Q8H PRN pain #10 t abs 02/01/21 lidocaine 5 % topical patch 1 patch topical DAILY #15 ea 02/01/21 (Lidoderm) ibuprofen 600 mg tablet 600 mg PO Q8H PRN fever or p ain 02/03/24 #14 tabs levofloxacin 500 mg tablet 500 mg PO DAILY #7 tabs 02/18 oxycodone 5 mg tablet 5 mg PO BID PRN severe pain (scale 02/03/24 score 7-10) #4 tabs doxycycline hyclate 100 mg tablet 100 mg PO BID #14 ta bs 10/16/24 cefuroxime axetil 250 mg tablet 250 mg PO BID 7 days # 14 tabs 01/19/25 Allergies Allergy/AdvReac Type Severity Reaction Status Date / Time No Known Allergies Allergy Verified 01/19/25 01:28 [facility] Social History Social History Alcohol intake: never Patient Tobacco Use Status: Never used Tobacco Smoked in Last 30 Days: No Use of substances other than those prescribed or required for medical reasons: No Substance Use Type: Marijuana Advance Directives: No Physical Exam ED Exam Exam: EXAM: Gen: Alert, awake, well appearing, well hydrated. Head: Atraumatic Eyes: Anicteric, Normal conjunctiva. ENT: Moist mucosa, no pallor. ? Neck: Supple. Skin: ?No observable rash or bruising on exposed or examined skin Respiratory: Breathing comfortably, No distress.Clear to auscultation bilaterally, symmetric chest expansion, No wheeze, rales, ronchi. Cardiovascular: Regular rate and rhythm. No murmurs or rub. Well perfused periphery, warm extremities. No edema. ? Abdominal: No focal tenderness. Soft, no objective distension. No palpable masses or obvious organomegaly. ?No guarding, no rebound tenderness or other peritoneal findings. : No flank tenderness. Neuro: Alert. Gross movement of all extremities intact. ? Psych: Calm. Cooperative. MSK: No grossly visible deformity. Vital signs: See flowsheet Vital Signs: Vital Signs - 24 hr 01/19/25 01:27 01/19/25 03:02 01/19/25 03:03 Temperature 98.5 F 98.2 F 98.2 F Pulse Rate 94 85 85 Respiratory Rate 20 20 20 Blood Pressure 124/71 112/65 112/65 Pulse Oximetry 99 98 98 Oxygen Delivery Method Room Air Room Air Room Air BMI result Body Mass Index 23.5 Procedures Procedure Narrative Procedure Narrative: EMERGENCY ULTLRASOUND INTERPRETATION-Limited Uterus US [This study was ordered, performed, and interpreted by myself. The study reveals: Impression: Intrauterine with the appropriate heart rate. No free fluid. Left kidney without hydronephrosis] [Indication: Uterus: Intrauterine with grossly appropriate fluid heart rate: 170s, appropriate Performed by: Abelino Miguel MD Images were stored CPT: 58530] Medical Decision Making Medical Decision Making MDM Narrative: 19-year-old female with a fall low mechanism from bed about 1.5 ft high onto the left side of the abdomen she is concerned given that she is 16 weeks . No abdominal tenderness no vaginal bleeding passage of fluids. She has complained of left low flank pain and had a UTI just before the was diagnosed. She thought she was treated fully that time. No fever, vitals stable. Reassuring point of care ultrasound of the fetus with appropriate heart rate movement. No hydronephrosis seen in the left kidney. Patient's urine is grossly cloudy visible by myself. So cloudy I am unable to see through it. Despite this the micro urinalysis does not show a lot of cells there is leuk esterase. Given the appearance and flank pain I think it is reasonable to begin treatment urine will be cultured. Preliminary Favored Differential Diagnosis: Traumatic injury of the uterus, UTI, pyelonephritis, musculoskeletal back pain, round ligament pain among additional considered etiologies Testing Interpreted Independently: See point of care ultrasound results Radiology or Lab testing Results Reviewed: Not Applicable Consults: Not Applicable Independent Historians/External Chart Reviews: Not Applicable Social Determinants of Health Impacting MDM/Planning: Not Applicable Lab Data 01/19/25 02:05 01/19/25 02:05 Labs: Lab Results 01/19/25 01/19/25 Range/Units 02:05 02:11 WBC 7.6 (4.8-10.8) X10*3/uL RBC 3.60 L (4.20-5.50) X10*6/uL Hgb 10.4 L (12.0-16.0) g/dl Hct 29.5 L (37.0-47.0) % MCV 81.9 (80.0-98.0) fL MCH 28.9 (27.0-33.0) pg MCHC 35.3 H (31.0-35.0) g/dl RDW 12.0 (11.0-16.0) % Plt Count 255 D (160-400) X10*3/uL MPV 10.0 (9.4-12.3) fL Immature Gran % (Auto) 0.3 (0.0-0.4) % Neut % (Auto) 65.6 (45-73) % Lymph % (Auto) 23.8 (20-40) % [place] % (Auto) 8.0 (2-11) % Eos % (Auto) 1.6 (0-4) % Baso % (Auto) 0.7 (0-2) % Lymph # (Auto) 1.8 (1.2-4.9) X10*3/uL [place] # (Auto) 0.6 (0.1-1.2) X10*3/uL Eos # (Auto) 0.1 (0.0-0.4) X10*3/uL Baso # (Auto) 0.1 (0.0-0.2) X10*3/uL Abs Immat Gran (auto) 0.02 (0.00-0.03) X10*3/uL Absolute Neuts (auto) 5.0 (2.0-8.3) x10*3/uL Absolute Nucleated RBC 0.000 (0.0-0.012) X10*3/uL Nucleated RBC % (auto) 0.0 (0.0-0.2) /100WBC Sodium 139 (135-145) mmol/L Potassium 3.7 (3.3-5.1) mmol/L Chloride 108 (96-108) mmol/L Carbon Dioxide 22 (22-29) mmol/L Anion Gap 13 (12-20) BUN 9 (9-16) mg/dL Creatinine 0.44 L (0.5-1.4) mg/dL Estim Creat Clear Calc 176.0 Estimated GFR > 60 Random Glucose 91 (60-115) mg/dL Calcium 8.9 D (8.4-10.2) mg/dL Total Bilirubin 0.1 (0.0-1.0) mg/dL AST 18 (5-31) U/L ALT 28 (0-31) U/L Alkaline Phosphatase 50 (39-117) U/L Total Protein 6.4 L (6.5-8.0) g/dL Albumin 3.8 (3.5-5.0) g/dL Lipase 27 (8-78) U/L Urine Color Yellow Urine Appearance Turbid Urine pH 8.5 (5.0-9.0) Ur Specific [place] 1.015 (1.005-1.025) Urine Protein Negative (Neg-Trace) mg/dL Urine Glucose (UA) Negative (Negative) mg/dL Urine Ketones Negative (Negative) mg/dL Urine Blood Small (1+) H (Negative) Urine Nitrite Negative (Negative) Ur Leukocyte Esterase Small (1+) H (Negative) Urine RBC 0-2 (0-2) /HPF Urine WBC 0-5 (0-5) /HPF Ur Squamous Epith Cells 0-2 (0-2) /HPF Urine Bacteria None Seen (None Seen) Hyaline Casts 0-2 (0-2) /LPF Urine Test Cancelled Medications Administered Discontinued Medications Generic Name Dose Route Start Last Admin Trade Name Kim PRN Reason Stop Dose Admin Acetaminophen 975 mg 01/19/25 02:20 01/19/25 02:51 Acetaminophen 325 Mg Tablet PO 01/19/25 02:21 975 mg ONCE ONE Administration Cefuroxime Axetil 250 mg 01/19/25 02:20 01/19/25 02:51 Cefuroxime Axetil 250 Mg Tablet PO 01/19/25 02:21 250 mg ONCE ONE Administration Discharge Plan Discharge Clinical Impression: , UTI (urinary tract infection) Patient Disposition: Home, Self-Care Instructions: Urinary Tract Infection in (ED), at 15 to 18 Weeks (ED) Additional Instructions: _ DISCHARGE DIAGNOSES: Urinary tract infection in Fall/trauma in HISTORY OF PRESENTATION: ?Fall. , left low back pain EMERGENCY DEPARTMENT COURSE,TESTS, TREATMENTS: While in the ED today your urine was cloudy you had a reassuring ultrasound of your . Your lab work was reassuring we started you on antibiotics for urinary tract infection DISCHARGE MEDICATIONS: We have prescribed antibiotics FOLLOW-UP: ?Call your primary or general physician soon as possible to discuss your symptoms, your ED visit and to discuss follow up plans It is very important you call your OBGYN thing Wednesday morning to discuss your fall that you had a reassuring ultrasound of the fetus and that we diagnosed UTI. INSTRUCTIONS ?& RETURN PRECAUTIONS: If any symptoms change first call your primary physician, if it is after-hours your primary doctors office should have a provider battalion chief you can speak with. If the symptoms are severe or very concerning to you then call 911 or return to the ED. Abelino Miguel MD Emergency Physician [facility] Prescriptions: New cefuroxime axetil 250 mg tablet 250 mg PO BID 7 Days Qty: 14 0RF No Action ibuprofen 400 mg tablet 400 mg PO Q8H PRN (Reason: pain) Qty: 10 0RF lidocaine [Lidoderm] 5 % adhesive patch,medicated 1 patch topical DAILY Qty: 15 0RF Rx Instructions: leave on most painful area for up to 12 hrs doxycycline hyclate 100 mg tablet 100 mg PO BID Qty: 14 0RF levofloxacin 500 mg tablet 500 mg PO DAILY Qty: 7 0RF ibuprofen 600 mg tablet 600 mg PO Q8H PRN (Reason: fever or pain) Qty: 14 0RF oxycodone 5 mg tablet 5 mg PO BID PRN (Reason: severe pain (scale score 7-10)) Qty: 4 0RF Rx Instructions: Partial Fill upon patient request. Interventions: ED Discharge Assessment Last Done: 01/19/25 03:03 Discharge Date/Time: 01/19/25 03:04 Print Language: Iraqi
[2025-01-19 02:09] LABS: MANUAL DIFF FLAG NO
[2025-01-19 02:20] LABS: Appearance Urine Turbid; Glucose Urine UA Negative (Negative); PH 8.5 (5.0-9.0); Specific Gravity - Urine 1.015 (1.005-1.025); UMIC TRIGGER UACC YES
[2025-01-19 02:31] LABS: Hematocrit 29.5 % (37.0-47.0); Hemoglobin 10.4 g/dl (12.0-16.0); Imm Gran Abs Auto 0.02 X10*3/uL (0.00-0.03); Imm Gran Pct Auto 0.3 % (0.0-0.4); Lymphocytes Absolute Auto 1.8 X10*3/uL (1.2-4.9); Mean Corpuscular HGB Conc 35.3 g/dl (31.0-35.0); Mean Corpuscular Hemoglobin 28.9 pg (27.0-33.0); Mean Corpuscular Volume 81.9 fL (80.0-98.0); NRBC Abs Auto 0.000 X10*3/uL (0.0-0.012); NRBC Pct Auto 0.0 /100WBC (0.0-0.2); Platelet Count 255 X10*3/uL (160-400); Red Blood Count 3.60 X10*6/uL (4.20-5.50); White Blood Count 7.6 X10*3/uL (4.8-10.8)
[2025-01-19 02:32] LABS: UACC Culture Trigger YES
[2025-01-19 02:35] LABS: Alanine Aminotransferase 28 U/L (0-31); Albumin Level 3.8 g/dL (3.5-5.0); Alkaline Phosphatase 50 U/L (39-117); Anion Gap 13 (12-20); Aspartate Amino Transferase 18 U/L (5-31); Blood Urea Nitrogen 9 mg/dL (9-16); Calcium 8.9 mg/dL (8.4-10.2); Carbon Dioxide 22 mmol/L (22-29); Chloride 108 mmol/L (96-108); Creatinine Clr Calc Pharmacy 176.0; Estimated Glomerular Filt Rate > 60; Lipase 27 U/L (8-78); Potassium 3.7 mmol/L (3.3-5.1); Sodium 139 mmol/L (135-145); Total Protein 6.4 g/dL (6.5-8.0)
[2025-01-19 03:02] VITALS: BP 112/65; PULSE 85; RESP 20; TEMP 36.8; O2SAT 98
[2025-01-19 03:03] VITALS: BP 112/65; PULSE 85; RESP 20; TEMP 36.8; O2SAT 98
--- NOTE | 2025-01-19 03:03 | PC.NURSE ---
medicated per mar, reviewed discharge instructions with pt. pt verbalized understanding, no sign of distress upon discharge
== END 2025-01-19 03:04 | disposition home or self-care (01) ==
PROVIDERS: Emergency Provider Emergency Medicine; PCP Internal Medicine
DX: O23.42 Unspecified infection of urinary tract in pregnancy, second trimester (principal); N39.0 Urinary tract infection, site not specified; M54.50 Low back pain, unspecified; Z3A.20 20 weeks gestation of pregnancy; Z79.899 Other long term (current) drug therapy
CPT/HCPCS: 36415; 76815; 80053; 81001; 83690; 85025; 87086; 99284

== ENCOUNTER 2025-01-29 02:39 | Emergency (ER) | payer OTHER, SELFPAY ==
[2025-01-29 02:41] VITALS: BP 101/65; PULSE 75; RESP 18; TEMP 37; O2SAT 99; BMI 26.8
[2025-01-29 03:00] LABS: Appearance Urine Turbid; Glucose Urine UA Negative (Negative); PH 7.5 (5.0-9.0); Specific Gravity - Urine 1.015 (1.005-1.025); UMIC TRIGGER UACC YES
[2025-01-29 03:01] LABS: UPreg QC Valid YES
--- NOTE | 2025-01-29 03:04 | ED.FEMALEGU ---
HPI - Female Genitourinary General Chief complaint: Urogenital-Female Stated complaint: Uro Gen Female Time Seen by Provider: 01/29/25 03:04 Related Data Previous Rx's ?Medication ?Instructions ?Recorded ibuprofen 400 mg tablet 400 mg PO Q8H PRN pain #10 tabs 02/01/21 lidocaine 5 % topical patch 1 patch topical DAILY #15 ea 02/01/21 (Lidoderm) ibuprofen 600 mg tablet 600 mg PO Q8H PRN fever or pain 02/03/24 #14 tabs levofloxacin 500 mg tablet 500 mg PO DAILY #7 tabs 02/03/24 oxycodone 5 mg tablet 5 mg PO BID PRN severe pain (scale 02/03/24 score 7-10) #4 tabs doxycycline hyclate 100 mg tablet 100 mg PO BID #14 tabs 10/16/24 cefuroxime axetil 250 mg tablet 250 mg PO BID 7 days #14 tabs 01/19/25 cefdinir 300 mg capsule 300 mg PO Q12H 10 days #20 caps 01/29/25 Allergies Allergy/AdvReac Type Severity Reaction Status Date / Time No Known Allergies Allergy Verified 01/29/25 02:47 [facility] Social History Social History Alcohol intake: never Patient Tobacco Use Status: Never used Tobacco Substance Use Type: Marijuana Advance Directives: No Advance Directives Information Provided: No Physical Exam Vital Signs: Vital Signs: Last Vital Signs Temp 98.6 F 01/29/25 02:41 Pulse 75 01/29/25 02:41 Resp 18 01/29/25 02:41 BP 101/65 01/29/25 02:41 Pulse Ox 99 01/29/25 02:41 O2 Del Method Room Air 01/29/25 02:41 BMI result Body Mass Index 26.8 Medical Decision Making Lab Data Labs: Lab Results 01/29/25 Range/Units 02:52 Urine Color Yellow Urine Appearance Turbid Urine pH 7.5 (5.0-9.0) Ur Specific [place] 1.015 (1.005-1.025) Urine Protein Negative (Neg-Trace) mg/dL Urine Glucose (UA) Negative (Negative) mg/dL Urine Ketones Negative (Negative) mg/dL Urine Blood Trace H (Negative) Urine Nitrite Negative (Negative) Ur Leukocyte Esterase Trace H (Negative) Urine RBC 6-10 H (0-2) /HPF Urine WBC 0-5 (0-5) /HPF Ur Squamous Epith Cells 0-2 (0-2) /HPF Urine Bacteria None Seen (None Seen) Hyaline Casts 0-2 (0-2) /LPF Urine Test POSITIVE H (NEGATIVE) Discharge Plan Discharge Clinical Impression: Urinary tract infection during , Acute right flank pain Patient Disposition: Home, Self-Care Instructions: Urinary Tract Infection in (ED) Additional Instructions: Take your antibiotic as prescribed until the course is completed. Do not stop this medication early if you start to feel better. You need to take the entire course to kill all of the bacteria. Return to the ER with any new or worsening symptoms including: Worsening pain despite medication, fevers greater than 100?, vomiting, decreased movement, vaginal bleeding, any new symptom that concerns you. Call 911 with any medical emergency. Prescriptions: New cefdinir 300 mg capsule 300 mg PO Q12H 10 Days Qty: 20 0RF No Action ibuprofen 400 mg tablet 400 mg PO Q8H PRN (Reason: pain) Qty: 10 0RF lidocaine [Lidoderm] 5 % adhesive patch,medicated 1 patch topical DAILY Qty: 15 0RF Rx Instructions: leave on most painful area for up to 12 hrs doxycycline hyclate 100 mg tablet 100 mg PO BID Qty: 14 0RF levofloxacin 500 mg tablet 500 mg PO DAILY Qty: 7 0RF ibuprofen 600 mg tablet 600 mg PO Q8H PRN (Reason: fever or pain) Qty: 14 0RF oxycodone 5 mg tablet 5 mg PO BID PRN (Reason: severe pain (scale score 7-10)) Qty: 4 0RF Rx Instructions: Partial Fill upon patient request. cefuroxime axetil 250 mg tablet 250 mg PO BID 7 Days Qty: 14 0RF Print Language: [place]
--- OUTSIDE RECORDS SUMMARY | 2025-01-29 03:06 | XMS_ITS | Clinical Summary ---
Author Organization [facility] Address [address] [place] [address] Phone Care Team Providers Care Dental Specialist Name Role Phone Latrice Castillo MD Primary Care Provider [phone] Allergies No known active allergies Medications vitamin iron fum-folic acid 27-0.8 mg per tablet Take 1 tablet by mouth 1 (one) time each day. 30 each 11/13/2024 Active pyridoxine (VITAMIN B-6) 25 mg tablet Take 1 tablet (25 mg total) by mouth 4 (four) times a day if needed (nausea). 120 tablet 11/13/2024 Active Active Problems Problem Noted Date Diagnosed Date Urinary tract infection in m other during second trimester of 01/19/2025 Overview (01/19/2025): Was dx & treated in [facility] Carrier of spinal muscular atrophy 01/02/2025 Overview (01/02/2025): FOB testing___ Rh negative state in antepartum period Overview (12/13/2024): Rhogam at 28 weeks if indicated Encounter for supervision of normal first in first trimester 12/11/2024 Overview (01/19/2025): 1. [facility] site: [facility]: [address] [place] [address] ([phone]) 2. Delivery site: [facility] 3. Mobile Mommas: N/A 4. Dating criteria: LMP 5. Blood type: B negative rhogam not indicated baby RH negative 6. Genetic screening: Date: Result: Panorama: repeat 01/11/2025 low risk female RH negative Horizon: neg - carrier spinal muscular atrophy Nuchal: Scheduled 12/18/2024 at 300pm Survey: MSAFP: 01/15 negative 6. GBS: Date: 7. FOB name: Paula Blake 8. Plans A. Epidural or other pain management - B. Labor support identified - C. Tdap - Date: Flu - Date: D. Breast or Bottle feed: Bottle feeding E. Baby's name - F. Circumcision - no 9. Hospital Course: Anxiety, generalized 12/11/2024 Spotting 11/13/2024 Estimated Date of Delivery Comme nts Yes 07/02/2025 Based on last me nstrual period of 09/25/2024 Encounters Date Type Department Care Team Description 01/19/2025 Telephone Obstetrics and Gynecology - [address] [phone] Brianne Rosas CNM Incoming Call 01/16/2025 Telephone Obstetrics & Gynecology - [address] [phone] Brooke Delcid CNM dental letter 01/15/2025 3:45 PM EDT Initial Obstetrics and Gynecology - [address] [phone] Brianne Rosas CNM GA: 16w0d 12/18/2024 3:00 PM EDT Ancillary Procedure Maternal Medicine - [address] [phone] Encounter for screening of mother; Encounter for screening for malformations; Encounter for nuchal translucency testing 12/11/2024 10:00 AM EDT Clinical Support Obstetrics and Gynecology - [address] [phone] Encounter for screening of mother (Primary Dx); Encounter for supervision of normal first in first trimester 11/14/2024 Telephone Obstetrics and [facility]necology - [facility] [address] [place] [address] Amira Michelle MA Appointment 11/13/2024 10:30 AM EDT Office Visit Obstetrics and Gynecology - [address] [phone] Deepika Mcgee CNM Early stage of (Primary Dx); test positive; Nausea 11/12/2024 11:48 PM EDT - 11/13/2024 1:50 AM EDT Hospital Encounter [facility] - Maternity [address] [place] [address] Ester Gamble MD Eppsteiner, Erin E, MD Discharge Disposition: Home or Self Care from Last 3 Months Surgical History Surgery Date Site/Laterality Comments NO PAST SURGERIES Medical History Medical History Date Comments Childhood asthma, unspecified asthma severity, u ncomplicated Family History Medical History Relation Name Comments No Known Problems Brother 1 No Known Problems Brother 2 Hypertension Father Diabetes Maternal Grandfather Liver cancer Maternal Grandfather Breast cancer Maternal Grandmother Ovarian cancer Maternal Grandmother Uterine cancer Maternal Grandmother Uterine cancer Mother Uterine cancer Other Maternal Aunt No Known Problems Paternal Grandfather No Known Problems Paternal Grandmother Prostate cancer Neg Hx Relation Name Status Comments Brother 1 Alive Brother 2 Alive Father Alive Maternal Grandfather Alive Maternal Grandmother Alive Mother Alive Other Maternal Aunt Alive Paternal Grandfather Alive Paternal Grandmother Alive Social History Tobacco Use Types Packs/Day Years Used Date Smoking Tobacco: Never Smokeless Tobacco: Never Tobacco Cessation:Counseling Given: Not Answered Alcohol Use Standard Drinks/Week Comments Not Currently 0 (1 standard drink = 0.6 oz pur e alcohol) none since + Estimated Date of Delivery Comme nts Yes 07/02/2025 Based on last me nstrual period of 09/25/2024 Sex and Gender Information Value Date Recorded Sex Assigned at Not on file Legal Sex Female 1:49 PM EDT Gender Identity Not on file Sexual Orientation Not on file Obstetrics History Para Term AB IAB SAB Ectopic Multiple Livin g Live Births 2 0 0 0 1 1 0 Date Outcome GA Total Labor Labor/2nd/3rd Weight Sex Type Anes PTL Brenda A1 A5 Name Clin 2021 SAB Current Summary Episode Dates Number of Fetuses Estimated Date of Delivery 11/12/2024 - Present (01/29/2025) 07/02/2025 (set by Deepika Mcgee CNM on 11/13/2024 based on Last Menstrual Period on 09/25/2024) Dating Summary Based On [place] Diff Last Menstrual Period on 09/25/2024 07/02/2025 Working Alternate EDINSON Entry 07/06/2025 -4d Overview and Plan Delivery Plans Post-Delivery Plans Planned delivery method:Vaginal Feeding intentions:Exclusive Formula Planned delivery location:[facility] Circumcis ion requested:No Planned anesthesia:None Acceptable blood products:All Vitals Pregravid Weight Height TWG (As of 01/29/2025) Pregrav id BMI 59.9 kg (132 lb) 2.54 kg (5 lb 9.6 oz) Date GA Fund Present FHR Mvmt BP Weight Edema Alb Glu Ket Dil/ Eff/Sta 5 7w0d Inpatient data not displayed here. See encounter summary. Notes Progress Notes - Initial Pre camille - 01/15/2025 - GA:16w0d 01/15/2025 - [facility]w0d [facility] [place] Curtis Depression Scale: In the Past 7 Days I have been able to laugh and see the funny side of things.: As much as I always could I have looked forward with enjoyment to things.: Rather less than I used to I have blamed myself unnecessarily when things went wrong.: Yes, most of the time I have been anxious or worried for no good reason.: Yes, sometimes I have felt scared or panicky for no good reason.: Yes, sometimes Things have been getting on top of me.: Yes, sometimes I haven't been coping as well as usual I have been so unhappy that I have had difficulty sleeping.: Not very often I have felt sad or miserable.: Yes, quite often I have been so unhappy that I have been crying.: Yes, most of the time The thought of harming myself has occurred to me.: Never Curtis Depression Scale Total: 16 [place] SCREENING CHARGE (Clinic Only): [id number] 01/15/2025 - 16w0d - Brianne Rosas CNM OB 12 week appt IP: S: Maryjane is a 19 y.o. year old here for IP visit with her the FOB . Her is planned. She and the father of the baby are happy. 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 She and the FOB are not in a relationship however he plans to be involved. Patient's last menstrual period was 09/25/2024. She is certain of her LMP with irregular cycles. is currently dated by LMP confirmed by 1st trimester ultrasound. Anatomy scan scheduled for 02/19/2025 She complains of none, nausea and vomiting resolved . She denies vaginal bleeding or cramping. Flu vaccine: not indicated at today's visit Fundus 4 FB below umbilicus FHR 150s O: Blood pressure 122/76, pulse 97, resp. rate 14, weight 62.4 kg (137 lb 9.6 oz), last menstrual period 09/25/2024. See OB physical and labs. Vitals BP: 122/76 Weight: 62.4 kg (137 lb 9.6 oz) No results found for: ABORH Lab Results Component Value Date RH Negative 12/11/2024 A: at 16w0d weeks gestation. 1. Encounter for supervision of normal first in first trimester 2. Carrier of spinal muscular atrophy 3. Rh negative state in antepartum period 4. 16 weeks gestation of P: Genprobe obtained today. Oriented to THoNE MG and anticipated course. Discussed collaborative practice and [facility] delivery. Reviewed healthy eating and normal weight gain in . Encouraged patient to push PO fluids. Counseled about warning signs of the first trimester and how to contact data conversion analyst provider. Discussed the benefits of breast feeding and strongly encouraged to consider this. RTO 4 weeks. The patient does not require anesthesia consult. This patient's VTE risk status is low. FOB is getting Horizon testing today AFP ordered Curtis Depression Scale: In the Past 7 Days I have been able to laugh and see the funny side of things.: As much as I always could I have looked forward with enjoyment to things.: Rather less than I used to I have blamed myself unnecessarily when things went wrong.: Yes, most of the time I have been anxious or worried for no good reason.: Yes, sometimes I have felt scared or panicky for no good reason.: Yes, sometimes Things have been getting on top of me.: Yes, sometimes I haven't been coping as well as usual I have been so unhappy that I have had difficulty sleeping.: Not very often I have felt sad or miserable.: Yes, quite often I have been so unhappy that I have been crying.: Yes, most of the time The thought of harming myself has occurred to me.: Never Curtis Depression Scale Total: 16 [place] SCREENING CHARGE (Clinic Only): [id number] Brianne Rosas CNM Progress Notes - Clinical Cervantes pport - 12/11/2024 - GA:11w0d 12/11/2024 - w0d - Alpa Lyons RN Maryjane Babcock is a 19 y.o. old female at 11w0d. This is Planned. The patient feels happy about the . The FOB is not involved. Patient is doing gender reveal-would like gender placed in an envelope. Patient's last menstrual period was Patient's last menstrual period was 09/25/2024. (exact date)., which would make her currently 11w0d with an Estimated Date of Delivery: 07/02/25. She is certain of her date. An ultrasound was performed at [facility] at approximately 6w of , andd ates were close to LMP. Patient has significant history of: No previous history of . History of asthma as a child, anxiety-took meds, off medications for 1 year-states she has been coping well,. OB Past Medical History: Have you had or do you currently have: Diabetes? No Hypertension? No Heart disease, Mitral valve Prolapse, or Rheumatic fever? No An Autoimmune disease such as Lupus or Rheumatoid Arthritis? No Epilepsy, Seizures, or Spells? No Migraine Headaches? No Stroke or loss of function or sensation? No Additional Questions: Have you ever been treated for anxiety and/or depression? Yes- was on meds for anxiety-stopped 1 year ago Are you having problems with crying spells or loss of self-esteem? No Have you ever required psychiatric care? No Have you ever had hepatitis, liver disease or jaundice? No Have you ever been treated for blood clots in your veins, deep venous thrombosis, inflammation in the veins, thrombosis, phlebitis, pulmonary embolism or varicosities? No Have you had excessive bleeding after surgery or dental work? No Do you bleed more than other women after a cut or scratch? No Do you have a history of anemia? No Have you ever had Thyroid problems or taken Thyroid medications? No Do you have any other Endocrine Problems (ie. PCOS)? No Have you ever been in a major accident or suffered serious trauma? No Within the last year, has anyone hit, slapped, kicked or otherwise hurt you? No In the last year, has anyone forced you to have sex when you didn't want to? No Do you feel safe at home? Yes Have you ever received a blood transfusion? No Would you refuse a blood transfusion if a doctor judged to be medically necessary? No Would you rather than receive a blood transfusion? No If you answered yes to the above questions, is this for taoism reasons? N/A Do you know what your blood type is or if you are Rh Negative? unknown Have you ever had abnormal antibodies in your blood? unknown Have you ever had asthma? Yes-as a child Have you every had Tuberculosis? No Have you ever had any breast problems? No Have you ever breast fed? N/A Have you ever had any gynecological surgical procedures such as cervical conization, LEEP procedure, Laser treatment, cryosurgery of the cervix or dilation and curettage, etc? No Have you had any other surgical procedures? No Have you ever been hospitalized overnight for a non-surgical reason excluding normal delivery? As a -apneic episode-spent several nights in hospital Have you ever had anesthesia complications? No Have you ever had an abnormal pap smear? No Do you have a history of abnormalties of the uterus? No Did your mother take MARVIN or any other hormones when she was with you? No Did it take more than one year to become ? No Have you ever been evaluated or treated for infertility? No Is there a history of medical problems in your family which you feel might adversely affect your health or ? No Do you have any other problems we have not asked you about which you feel may be important for us to know for this ? No Do you currently have any of the following symptoms since your last menstrual period: Abdominal pain, blood in the stool or urine, chest pain, shortness of breath, coughing or vomiting up blood, your heart racing or skipping beats, nausea and/or vomiting, pain on urination, or vaginal discharge or vaginal bleeding? No Genetic Screening/Teratology Counseling- Includes patient, baby's father, or anyone in either family with: Patient's age 35 years or older as of estimated date of delivery No Thalassemia (Indian, Tajik, Mediterranean, or background): MCV less than 80 No Neural tube defect (Meningomyelocele, Spina bifida, or Anencephaly) No Congenital heart defect No Down syndrome No Maikel-Sachs (Ashkenazi Taoism, Cajun, Ethiopian Anguillan) No Odalys disease (Ashkenazi Taoism) No Familial dysautonomia (Ashkenazi Taoism) No Sickle cell disease or trait () No Hemophilia or other blood disorders No Muscular dystrophy No Cystic fibrosis No Appleton's chorea No Intellectual disability and/or autism No If yes, was the person tested for Fragile X? N/A Other inherited genetic or chromosomal disorder No Maternal metabolic disorder (eg. Type 1 diabetes, PKU) No Patient or baby's father had child with defects not listed above No Recurrent loss, or a stillbirth No Medications (including supplements, vitamins, herbs, or OTC drugs)/illicit/recreational drugs/alcohol since last menstrual period Yes-pnv If yes, agent(s) and strength/dosage: Any other No OB Infection History: Do you object to being tested for Hepatitis B? No Do you object to being tested for HIV? No Do you feel that you are at high risk for coming contact with the AIDS virus? No Have you ever been treated for tuberculosis? No Have you ever received the BCG vaccine? No Have you ever had a positive skin test for Tuberculosis? No Do you live with someone who has Tuberculosis? No Have you ever been exposed to Tuberculosis? No Do you have Genital Herpes? No Does your partner have Genital Herpes? No Have you had a rash or viral illness since your last period? No Have you ever had Gonorrhea, Chlamydia, Syphilis, Venereal Warts, Trichomoniasis, Pelvic Inflammatory Disease (PID) or any other sexually transmitted disease? Yes-chlamydia as a teen Do you know if you are a Group B Streptococcus Carrier? no Did you have the Chicken Pox/Varicella? no Were you vaccinated against Chicken Pox/Varicella? yes Have you had any other infectious diseases? No Maryjane Babcock has been instructed on the following: random urine drug screening and an initial urine drug screen has been ordered. Maryjane Babcock has also been informed of the nutrition club ambassador provider recommendation for first trimester nuchal lucency testing to be performed during her . Maryjane Babcock has also been made aware of the time sensitive nature for this testing to be completed. . The patient now has a gestational age of 11w0d. The patient would be due for this testing prior to 14 weeks gestation which would be on 01/02/2024. Ethnicity Based Genetic Testing has been reviewed and the [employer] information sheet has been provided to the patient in their After Visit Summary. The patient was also advised that genetic testing may not be covered by all insurances. The patients states that they understand this information. The patient states that she has not had the genetic screening for Horizon 14 done in the past during a previous . The patient has agreed that she does want genetic testing for Horizon 14 and Panorama with gender. The following Labs have been ordered: Obstetric Panel, HIV with verbal Consent, Urine Culture, and Panorama with gender, UDS She is aware that her insurance may or may not cover Panorama and/or Horizon 14 test and discussed bang only plasencia for test(s) - info given today in her after visit summary . She would like to proceed with testing. For Horizon Carrier Screening, if patient has [employer], [facility] or [employer] insurances: Not Applicable Electronically signed by: Alpa Lyons RN 12/11/24 10:16 AM EDT Last Filed Vital Signs Vital Sign Reading Time Taken Comments Blood Pressure 122/76 01/15/2025 3:53 PM EDT Pulse 97 01/15/2025 3:53 PM EDT Temperature 36.7 C (98.1 F) 11/13/2024 12:14 AM EDT Respiratory Rate 14 01/15/2025 3:53 PM EDT Oxygen Saturation 100% 11/13/2024 12:14 AM EDT Inhaled Oxygen Concentration - - Weight 62.4 kg (137 lb 9.6 oz) 01/15/2025 3:53 P M EDT Height 152.4 cm (5') 11/13/2024 10:34 AM EDT Body Mass Index 26.87 11/13/2024 10:34 AM EDT Plan of Treatment Upcoming Encounters Date Type Department Care Team (Late st Contact Info) Description 02/16/2025 3:30 PM EDT Routine Obstetrics and Gynecology - [facility] [address] [place] [address] Brooke Delcid, CNM [address] [place] [address] 02/19/2025 2:00 PM EDT Ancillary Procedure Maternal Medicine - [facility] [address] [place] [phone] 07/06/2025 Hospital Encounter [facility] - Maternity [address] [place] [phone] Ofelia Doyle MD [address] [place] [address] Health Maintenance Due Date Last Done Comments HPV Vaccines (1 - 3-dose series) 2019 Meningococcal B Vaccine (1 o f 2 - Standard) 2020 DTaP,Tdap,and Td Vaccines (1 - Tdap) 2023 Hepatitis B Vaccines (1 of 3 - 19+ 3-dose series) 2023 COVID-19 Vaccine (1 - 2023-2 5 season) 2024 Depression Screening 06/28/2024 Annual Well Child Visit (3-2 1 years old) 11/03/2024 Social Influencers of Health Screening 11/03/2024 Influenza Vaccine (#1) 2025 Gonorrhea/Chlamydia Screening 01/15/2026 01/15/2025 HIV Screening Completed 12/11/2024 Hepatitis C Screening Completed 12/11/2024 HIB Vaccines Aged Out No longer eligi [...] 5 Years) and At-Risk Patients (6 to 49 Years) Aged Out No longer eligi ble based on patient's age to complete this topic RSV Immunization Patients Un stephania 20 months Aged Out No longer eligible b ased on patient's age to complete this topic Procedures Procedure Name Priority Date/Time Associated Diagnosis Comments HORIZON 14, DIMAS Routine 01/25/2025 3: 57 PM EDT ALPHA FETOPROTEIN, MATERNAL Routine 01/15/2025 4:28 PM EDT Encounter for supervision of normal first in first trimester 16 weeks gestation of CHLAMYDIA TRACHOMATIS AND NEISSERIA GONORRHOEAE PCR Routine 01/15/2025 4:13 PM EDT Encounter for supervision of normal first in first trimester 16 weeks gestation of PANORAMA TEST Routine 5 11:00 AM EDT VENIPUNCTURE CHARGE Routine 01/03/2025 1 :47 PM EDT Encounter for supervision of normal first in first trimester HORIZON 14, DIMAS Routine 01/01/2025 1: 15 PM EDT PANORAMA TEST Routine 5 1:13 PM EDT US OB LESS 14 WKS SINGLE OR FIRST GESTATION Routine 12/18/2024 3:57 PM EDT Encounter for screening for malformations Encounter for nuchal translucency testing US OB LESS 14 WKS NUCHAL MEASUREMENT Routine 12/18/2024 3:57 PM EDT Encounter for screening of mother Encounter for screening for malformations Encounter for nuchal translucency testing VENIPUNCTURE CHARGE Routine 12/11/2024 1 1:17 AM EDT Encounter for supervision of normal first in first trimester CBC WITH AUTO DIFFERENTIAL Routine 12/11/2024 11:17 AM EDT Encounter for screening of mother VARICELLA ZOSTER ANTIBODY IGG Routine 12/11/2024 11:17 AM EDT Encounter for screening of mother HEPATITIS B SURFACE ANTIGEN WITH CONFIRMATION Routine 12/11/2024 11:17 AM EDT Encounter for screening of mother CBC AND DIFFERENTIAL Routine 12/11/2024 11:17 AM EDT Encounter for screening of mother DRUG ABUSE SCREEN EXPANDED WITH REFLEX CONFIRMATION, URINE Routine 12/11/2024 11:17 AM EDT Encounter for screening of mother HEPATITIS C ANTIBODY Routine 12/11/2024 11:17 AM EDT Encounter for screening of mother HIV 1, 2 ANTIBODY, P24 ANTIGEN WITH REFLEX TO DIFFERENTIATION Routine 12/11/2024 11:17 AM EDT Encounter for screening of mother RUBELLA ANTIBODY IGG Routine 12/11/2024 11:17 AM EDT Encounter for screening of mother TREPONEMA PALLIDUM ANTIBODY WITH REFLEX TO RPR AND PARTICLE AGGLUTINATION Routine 12/11/2024 11:17 AM EDT Encounter for screening of mother TYPE AND SCREEN Routine 12/11/2024 11:17 AM EDT Encounter for screening of mother CULTURE URINE Routine 12/11/2024 11:17 AM EDT Encounter for screening of mother POC , URINE DIAGNOSTIC Routine 11/13/2024 10:46 AM EDT test positive from Last 3 Months Results * Horizon 14 (01/25/2025 3:57 PM EDT) Only the most recent of2 resultswithin the time period is included. Blood Venous blood specimen / Unknown Brianne Rosas [facility] BLOOD ORDERABLES Final Resu lt * Alpha fetoprotein, maternal (01/15/2025 4:28 PM EDT) Physician Phone Number Not Provided 01/18/2025 6:39 PM EDT [facility] Notes to Laboratory Not Provided 01/18/2025 6:39 PM EDT [facility] Weight (lbs) 137 01/18/2025 6:39 PM EDT [facility] Expected Due Date (MM/DD/YYYY) [id number] 01/18/2025 6:39 PM EDT [facility] Expected Due Date Based On? Not Provided 01/18/2025 6:39 PM EDT [facility] Twin ? Not Provided 01/18/2025 6:39 PM EDT [facility] Race Not Provided 01/18/2025 6:39 PM EDT [facility] Insulin Dependent Diabetic? Not Provided 01/18/2025 6:39 PM EDT [facility] Does Patient Currently Smoke Cigarettes? Not Provided 01/18/2025 6:39 PM EDT [facility] Repeat Screen for Current ? Not Provided 01/18/2025 6:39 PM EDT [facility] Previous w/ Neural Tube Defect? Not Provided 01/18/2025 6:39 PM EDT [facility] IVF ? Not Provided 01/18/2025 6:39 PM EDT [facility] Screen Result Negative Negative 01/18/2025 6:39 PM EDT [facility] Age at [place] (years) 20 2024 6:39 PM EDT [facility] Gestational Age (weeks) 16 01/18/2025 6:39 PM EDT [facility] Gestational Age (days) 0 01/18/2025 6:39 PM EDT [facility] Weight (lbs) 137 01/18/2025 6:39 PM EDT [facility] Multiple Gestation Single 2024 6:39 PM EDT [facility] Ethnic Origin Not Provided 01/18/2025 6:39 PM EDT [facility] Insulin Dependent Diabetes Not Provided 01/18/2025 6:39 PM EDT [facility] Smoker? Not Provided 01/18/2025 6:39 PM EDT [facility] AFP 29.0 ng/mL 01/18/2025 6:39 PM EDT [facility] AFP MOM 0.84 01/18/2025 6:39 PM EDT [facility] Gestational Age Method [place] 01/18/2025 6:39 PM EDT [facility] Comment:The gestational age is based on an ED[place] of 07/02/25. Interpretation SeeBelow 01/18/2025 6:39 PM EDT [facility] Comment: This is the initial sample received at [facility] for MSAFP SCREEN NEGATIVE FOR NEURAL TUBE DEFECTS. Additional Test Information: The MSAFP does not provide a risk estimate or a diagnosis. Incorrect or missing information may considerably alter results. A positive report is indicated when the AFP MOM is greater than or equal to 2.20. Maternal weights less than 65 lbs or greater than 440 lbs are truncated and the AFP MOM is not adjusted beyond those limits. Assessment is adjusted for insulin-dependent diabetic status, weight, race and smoking. Previous pregnancies affected with a neural tube defect may significantly affect results. Test performed at [facility], [address], [place] [address] Kyleigh Eubanks MD, PhD - Substation Designer Blood Venous blood specimen / Unknown Venipuncture / Unknown 01/15/2025 4:28 PM EDT 01/15/2025 4:28 PM EDT us Brianne Rosas CNM LAB BLOOD ORDERABLES Final Resu lt [facility] [address] [place], [place] [address] * Chlamydia trachomatis and Neisseria gonorrhoeae molecular study (01/15/2025 4:13 PM EDT) Pathologist [facility] Neisseria gonorrhoeae PCR Negative Negative LAB MOLECULAR DIAGNOSTICS METHOD 01/16/2025 8:[address] [facility] Chlamydia trachomatis PCR Negative Negative LAB MOLECULAR DIAGNOSTICS METHOD 01/16/2025 8:[address] [facility] Swab Cervix uteri structure / Unknown Non-blood Collection / Unknown 01/15/2025 4:13 PM EDT 01/15/2025 4:13 PM EDT Brianne BARROW LAB MICROBIOLOGY - GENERAL ORDE RABLES Final Result [facility] [address] [place] [address], [place] [phone] * Panorama test (01/11/2025 11:00 AM EDT) Only the most recent of2 resultswithin the time period is included. Blood Venous blood specimen / Unknown Brianne BARROW LAB BLOOD ORDERABLES Final Resu lt * Venipuncture charge (01/03/2025 1:47 PM EDT) Only the most recent of2 resultswithin the time period is included. Pathologist [facility] Extra Tube Hold for add-ons. 01/03/2025 3:01 PM EDT [facility] ASHOK RossyMAT) Comment:Auto resulted. Blood Venous blood specimen / Unknown Venipuncture / Unknown 01/03/2025 1:47 PM EDT 01/03/2025 1:47 PM EDT Brianne BARROW LAB BLOOD ORDERABLES Final Resu lt [facility] (MAT) [place], [place] * US OB Less 14 Wks Nuchal Measurement (12/18/2024 3:57 PM EDT) Anatomical Region Laterality Modality Body Ultrasound 12/18/2024 3:14 PM EDT Narrative 12/19/2024 7:52 AM EDT OBSTETRICS REPORT (Signed Final 12/19/2024 07:52 am) PATIENT INFO: ID #: [id number] : [birth year] (19 yrs)(F) Name: MARYJANE Blackburn Visit Date: 12/18/2024 03:14 pm SADIQ PERFORMED BY: Attending: Erika Green MD Performed By: Norberto Rebolledo [facility] Referred By: Brianne Rosas [facility] Ref. Address: [address] [place] [address] Location: [facility]) SERVICE(S) PROVIDED: US Nuchal Translucency 73308 US < 14 weeks Abdominal Ultrasound 25272 INDICATIONS: Encounter for screening for nuchal Z36.82 translucency Encounter for screening for Z36.3 malformations 12 weeks gestation of Z3A.12 TECHNIQUE/SCAN QUALITY: Technique: Transabdominal Scan Satisfactory Quality: OB HISTORY: : 1 Term: 0 VITAL SIGNS: Weight (lb) Height BMI 132 5'0 25.78 EVALUATION: Number Of Fetuses: 1 Heart Rate(bpm): 163 Cardiac Activity: Observed Presentation: Variable Placenta Location: Anterior Appearance: Grade 0 Cord Insertion: Visualized BIOMETRY: GESTATIONAL AGE: LMP: 12w 0d Date: 09/25/24 EDINSON: 07/02/25 Best: 12w 0d Det. By: LMP (09/25/24) EDINSON: 07/02/25 1ST TRIMESTER GENETIC SONOGRAM SCREENING: CRL: 51.13 mm G.Age: 11w 6d EDINSON: 07/03/25 Nuc Trans: 1.02 mm STANDARD ANATOMY: Cranium: Normal appearance Choroid Plexus: Normal appearance Stomach: Normal appearance Abdominal Wall: Normal appearance Cord Vessels: Normal 3-Vessel Cord Bladder: Normal appearance Upper Extremities: Seen Lower Extremities: Seen CERVIX UTERUS ADNEXA: Uterus Size(cm) 7.79 x 10.71 x 6.71 Uterus Vol(ml): 293.12 Right Ovary Size(cm) 2.49 x 1.91 x 2.17 Vol(ml): 5.4 Normal in size and appearance. It is found between the uterus and the pelvic sidewall. Left Ovary Size(cm) 2.51 x 2.24 x 1.26 Vol(ml): 3.71 Normal in size and appearance. It is found between the uterus and the pelvic sidewall. COMMENTS: Ms. Babcock is being seen for first trimester screening for aneuploidy. - Her medical history is significant for anxiety/depression. - She had cell free DNA screening. The results are pending. - Ultrasound findings: The nuchal translucency measurement is < 95th% for the gestational age. - biometry is consistent with dates. Assessment of the anatomy is appropriate for the gestational age. There are no ultrasound findings to suggest aneuploidy. - Plan: 1. An anatomical survey and cervical length screening for risk of have been scheduled. - 2. The patient should be offered second trimester MSAFP only, to assess for risk of an open neural tube defect. Erika Green MD Electronically Signed Final Report 12/19/2024 07:52 am Procedure Note Erika Green MD - 12/19/2024 OBSTETRICS REPORT (Signed Final 12/19/2024 07:52 am) PATIENT INFO: ID #: [id number] : [birth year] (19 yrs)(F) Name: MARYJANE Blackburn Visit Date: 12/18/2024 03:14 pm SADIQ PERFORMED BY: Attending: Erika Green MD Performed By: Norberto Rebolledo [facility] Referred By: Brianne Rosas [facility] Ref. Address: [address] [place] [address] Location: [facility]) SERVICE(S) PROVIDED: US Nuchal Translucency 20176 US < 14 weeks Abdominal Ultrasound 44634 INDICATIONS: Encounter for screening for nuchal Z36.82 translucency Encounter for screening for Z36.3 malformations 12 weeks gestation of Z3A.12 TECHNIQUE/SCAN QUALITY: Technique: Transabdominal Scan Satisfactory Quality: OB HISTORY: : 1 Term: 0 VITAL SIGNS: Weight (lb) Height BMI 132 5'0 25.78 EVALUATION: Number Of Fetuses: 1 Heart Rate(bpm): 163 Cardiac Activity: Observed Presentation: Variable Placenta Location: Anterior Appearance: Grade 0 Cord Insertion: Visualized BIOMETRY: GESTATIONAL AGE: LMP: 12w 0d Date: 09/25/24 EDINSON: 1/5/26 Best: 12w 0d Det. By: LMP (09/25/24) EDINSON: 07/02/25 1ST TRIMESTER GENETIC SONOGRAM SCREENING: CRL: 51.13 mm G.Age: 11w 6d EDINSON: 07/03/25 Nuc Trans: 1.02 mm STANDARD ANATOMY: Cranium: Normal appearance Choroid Plexus: Normal appearance Stomach: Normal appearance Abdominal Wall: Normal appearance Cord Vessels: Normal 3-Vessel Cord Bladder: Normal appearance Upper Extremities: Seen Lower Extremities: Seen CERVIX UTERUS ADNEXA: Uterus Size(cm) 7.79 x 10.71 x 6.71 Uterus Vol(ml): 293.12 Right Ovary Size(cm) 2.49 x 1.91 x 2.17 Vol(ml): 5.4 Normal in size and appearance. It is found between the uterus and the pelvic sidewall. Left Ovary Size(cm) 2.51 x 2.24 x 1.26 Vol(ml): 3.71 Normal in size and appearance. It is found between the uterus and the pelvic sidewall. COMMENTS: Ms. Babcock is being seen for first trimester screening for aneuploidy. - Her medical history is significant for anxiety/depression. - She had cell free DNA screening. The results are pending. - Ultrasound findings: The nuchal translucency measurement is < 95th% for the gestational age. - biometry is consistent with dates. Assessment of the anatomy is appropriate for the gestational age. There are no ultrasound findings to suggest aneuploidy. - Plan: 1. An anatomical survey and cervical length screening for risk of have been scheduled. - 2. The patient should be offered second trimester MSAFP only, to assess for risk of an open neural tube defect. Erika Green MD Electronically Signed Final Report 12/19/2024 07:52 am us Brianne Rosas [facility] IMG OB US PROCEDURES Final Resu lt * US OB Less 14 Wks Single or First Gestation (12/18/2024 3:57 PM EDT) Anatomical Region Laterality Modality Body Ultrasound 12/18/2024 3:14 PM EDT Narrative 12/19/2024 7:52 AM EDT OBSTETRICS REPORT (Signed Final 12/19/2024 07:52 am) PATIENT INFO: ID #: [id number] : [birth year] (19 yrs)(F) Name: MARYJANE Blackburn Visit Date: 12/18/2024 03:14 pm SADIQ PERFORMED BY: Attending: Erika Green MD Performed By: Norberto Rebolledo RDMO Referred By: Brianne Rosas [facility] Ref. Address: [address] [place] [address] Location: [facility] SERVICE(S) PROVIDED: US Nuchal Translucency 90156 US < 14 weeks Abdominal Ultrasound 93654 INDICATIONS: Encounter for screening for nuchal Z36.82 translucency Encounter for screening for Z36.3 malformations 12 weeks gestation of Z3A.12 TECHNIQUE/SCAN QUALITY: Technique: Transabdominal Scan Satisfactory Quality: OB HISTORY: : 1 Term: 0 VITAL SIGNS: Weight (lb) Height BMI 132 5'0 25.78 EVALUATION: Number Of Fetuses: 1 Heart Rate(bpm): 163 Cardiac Activity: Observed Presentation: Variable Placenta Location: Anterior Appearance: Grade 0 Cord Insertion: Visualized BIOMETRY: GESTATIONAL AGE: LMP: 12w 0d Date: 09/25/24 EDINSON: 07/02/25 Best: 12w 0d Det. By: LMP (09/25/24) EDINSON: 07/02/25 1ST TRIMESTER GENETIC SONOGRAM SCREENING: CRL: 51.13 mm G.Age: 11w 6d EDINSON: 07/03/25 Nuc Trans: 1.02 mm STANDARD ANATOMY: Cranium: Normal appearance Choroid Plexus: Normal appearance Stomach: Normal appearance Abdominal Wall: Normal appearance Cord Vessels: Normal 3-Vessel Cord Bladder: Normal appearance Upper Extremities: Seen Lower Extremities: Seen CERVIX UTERUS ADNEXA: Uterus Size(cm) 7.79 x 10.71 x 6.71 Uterus Vol(ml): 293.12 Right Ovary Size(cm) 2.49 x 1.91 x 2.17 Vol(ml): 5.4 Normal in size and appearance. It is found between the uterus and the pelvic sidewall. Left Ovary Size(cm) 2.51 x 2.24 x 1.26 Vol(ml): 3.71 Normal in size and appearance. It is found between the uterus and the pelvic sidewall. COMMENTS: Ms. Babcock is being seen for first trimester screening for aneuploidy. - Her medical history is significant for anxiety/depression. - She had cell free DNA screening. The results are pending. - Ultrasound findings: The nuchal translucency measurement is < 95th% for the gestational age. - biometry is consistent with dates. Assessment of the anatomy is appropriate for the gestational age. There are no ultrasound findings to suggest aneuploidy. - Plan: 1. An anatomical survey and cervical length screening for risk of have been scheduled. - 2. The patient should be offered second trimester MSAFP only, to assess for risk of an open neural tube defect. Erika Green MD Electronically Signed Final Report 12/19/2024 07:52 am Procedure Note Erika Green MD - 12/19/2024 OBSTETRICS REPORT (Signed Final 12/19/2024 07:52 am) PATIENT INFO: ID #: [id number] : [birth year] (19 yrs)(F) Name: MARYJANE L Visit Date: 12/18/2024 03:14 pm SADIQ PERFORMED BY: Attending: Erika Green MD Performed By: Norberto Rebolledo RDMO Referred By: Brianne Rosas [facility] Ref. Address: [address] [place] [address] Location: [facility] SERVICE(S) PROVIDED: US Nuchal Translucency 79353 US < 14 weeks Abdominal Ultrasound 27252 INDICATIONS: Encounter for screening for nuchal Z36.82 translucency Encounter for screening for Z36.3 malformations 12 weeks gestation of Z3A.12 TECHNIQUE/SCAN QUALITY: Technique: Transabdominal Scan Satisfactory Quality: OB HISTORY: : 1 Term: 0 VITAL SIGNS: Weight (lb) Height BMI 132 5'0 25.78 EVALUATION: Number Of Fetuses: 1 Heart Rate(bpm): 163 Cardiac Activity: Observed Presentation: Variable Placenta Location: Anterior Appearance: Grade 0 Cord Insertion: Visualized BIOMETRY: GESTATIONAL AGE: LMP: 12w 0d Date: 09/25/24 EIDNSON: 07/02/25 Best: 12w 0d Det. By: LMP (09/25/24) EDINSON: 07/02/25 1ST TRIMESTER GENETIC SONOGRAM SCREENING: CRL: 51.13 mm G.Age: 11w 6d EDINSON: 07/03/25 Nuc Trans: 1.02 mm STANDARD ANATOMY: Cranium: Normal appearance Choroid Plexus: Normal appearance Stomach: Normal appearance Abdominal Wall: Normal appearance Cord Vessels: Normal 3-Vessel Cord Bladder: Normal appearance Upper Extremities: Seen Lower Extremities: Seen CERVIX UTERUS ADNEXA: Uterus Size(cm) 7.79 x 10.71 x 6.71 Uterus Vol(ml): 293.12 Right Ovary Size(cm) 2.49 x 1.91 x 2.17 Vol(ml): 5.4 Normal in size and appearance. It is found between the uterus and the pelvic sidewall. Left Ovary Size(cm) 2.51 x 2.24 x 1.26 Vol(ml): 3.71 Normal in size and appearance. It is found between the uterus and the pelvic sidewall. COMMENTS: Ms. Babcock is being seen for first trimester screening for aneuploidy. - Her medical history is significant for anxiety/depression. - She had cell free DNA screening. The results are pending. - Ultrasound findings: The nuchal translucency measurement is < 95th% for the gestational age. - biometry is consistent with dates. Assessment of the anatomy is appropriate for the gestational age. There are no ultrasound findings to suggest aneuploidy. - Plan: 1. An anatomical survey and cervical length screening for risk of have been scheduled. - 2. The patient should be offered second trimester MSAFP only, to assess for risk of an open neural tube defect. Erika Green MD Electronically Signed Final Report 12/19/2024 07:52 am Brianne Rosas CNM IMG OB US PROCEDURES Final Resu lt * Hepatitis C antibody (12/11/2024 11:17 AM EDT) Hepatitis C Antibody Negative Negative LAB CHEMISTRY METHOD 12/11/2024 5:[address] [facility] Blood Venous blood specimen / Unknown Venipuncture / Unknown 12/11/2024 11:17 AM EDT 12/11/2024 11:17 AM EDT Brianne Rosas CNM LAB BLOOD ORDERABLES Final Resu lt [facility] [address] [place] [address], * HIV 1,2 antibody, p24 antigen with reflex to differentiation (12/11/2024 11:17 AM EDT) HIV Combo AB/AG Negative Negative LAB CHEMISTRY METHOD 12/11/2024 5:[address] [facility] Blood Venous blood specimen / Unknown Venipuncture / Unknown 12/11/2024 11:17 AM EDT 12/11/2024 11:[address] [facility] - 12/11/2024 5:58 PM EDT This assay is a 4th generation assay allowing for earlier detection of HIV infection by detecting the presence of the HIV-1 p24 antigen as well as the traditional antibodies to HIV type 1 (including group O) and type 2. Use of a 4th generation assay is the current CDC recommendation for HIV screening. Brianne BARROW LAB BLOOD ORDERABLES Final Resu lt Performing Organization Address [facility] Co de Phone Number [facility] [address] [place] [address], * Hepatitis B surface antigen with reflex to confirmation (12/11/2024 11:17 AM EDT) Hepatitis B Surface Ag Negative Negative LAB CHEMISTRY METHOD 12/11/2024 6:[address] [facility] Blood Venous blood specimen / Unknown Venipuncture / Unknown 12/11/2024 11:17 AM EDT 12/11/2024 11:[address] [facility] - 12/11/2024 6:04 PM EDT Over the counter supplements containing high doses of biotin may interfere with this assay. If interference is suspected, patients shoud be retested after refraining from biotin supplements for 72 hours. Brianne BARROW LAB BLOOD ORDERABLES Final Resu lt Performing Organization Address [facility] Co de Phone Number [facility] [address] [place] [address], * Treponema pallidum antibody with reflex to RPR and particle agglutination (12/11/2024 11:17 AM EDT) T. Pallidum Antibodies Negative Negative LAB CHEMISTRY METHOD 12/11/2024 7:[address] [facility] Blood Venous blood specimen / Unknown Venipuncture / Unknown 12/11/2024 11:17 AM EDT 12/11/2024 11:17 AM EDT us Brianne Porternz CN LAB BLOOD ORDERABLES Final Resu lt [facility] [address] [place] [address], * Drug abuse screen expanded with reflex confirmation, urine (12/11/2024 11:17 AM EDT) Amphetamine Screen, Ur Negative Negative LAB CHEMISTRY METHOD 12/11/2024 4:[address] [facility] Comment:Certain OTC medicati ons containing ephedrine, phenylephrine, pseudoephedrine and phenylpropanolamine can cause false positive results. Barbiturate Screen, Ur Negative Negative LAB CHEMISTRY METHOD 12/11/2024 4:[address] [facility] Benzodiazepine Screen, Ur Negative Negative LAB CHEMISTRY METHOD 12/11/2024 4:[address] [facility] Cocaine Screen, Ur Negative Negative LAB CHEMISTRY METHOD 12/11/2024 4:[address] [facility] Opiate Screen, Ur Negative Negative LAB CHEMISTRY METHOD 12/11/2024 4:[address] [facility] Cannabinoid (THC) Screen, Ur Negative Negative LAB CHEMISTRY METHOD 12/11/2024 4:[address] [facility] Comment:Specimens from patie nts taking pantoprazole sodium (Protonix) have been shown to produce false positive results. Fentanyl, Ur Negative Negative LAB CHEMISTRY METHOD 12/11/2024 4:[address] [facility] Oxycodone Screen, Ur Negative Negative LAB CHEMISTRY METHOD 12/11/2024 4:[address] [facility] Urine Urine specimen obtained by clean catch procedure / Unknown Non-blood Collection / Unknown 12/11/2024 11:17 AM EDT 12/11/2024 11:[address] [facility] - 12/11/2024 4:58 PM EDT Assay cutoffs: Amphetamines 1000 ng/mL Barbiturates 200 ng/mL Benzodiazepines 200 ng/mL Cocaine 300 ng/mL Fentanyl 1 ng/mL Opiates 300 ng/mL Oxycodone 100 ng/mL THC 50 ng/mL Semi-quantitative assay for screening purposes only. Unconfirmed screening result should not be used for non-medical purposes. *POSITIVE RESULTS ARE AUTOMATICALLY SENT FOR ALTERNATE METHOD CONFIRMATION* Brianne BARROW LAB URINE ORDERABLES Final Resu lt [facility] [address] [place] [address], [place] [phone] * CBC auto differential (12/11/2024 11:17 AM EDT) WBC 5.6 4.8 - 10.8 K/mcL LAB HEMETOLOGY METHOD 12/11/2024 12:[address] [facility] RBC 4.30 3.80 - 4.80 M/mcL LAB HEMETOLOGY METHOD 12/11/2024 12:[address] [facility] Hemoglobin 12.4 11.5 - 16.0 g/dL LAB HEMETOLOGY METHOD 12/11/2024 12:[address] [facility] Hematocrit 37.1 35.0 - 47.0 % LAB HEMETOLOGY METHOD 12/11/2024 12:[address] [facility] MCV 85.7 79.0 - 98.0 FL LAB HEMETOLOGY METHOD 12/11/2024 12:[address] [facility] MCH 28.6 27.0 - 32.0 pcg LAB HEMETOLOGY METHOD 12/11/2024 12:[address] [facility] MCHC 33.4 32.0 - 37.0 g/dL LAB HEMETOLOGY METHOD 12/11/2024 12:[address] [facility] RDW 12.5 11.0 - 15.0 % LAB HEMETOLOGY METHOD 12/11/2024 12:53 PM [facility] Platelets 356 130 - 400 K/mcL LAB HEMETOLOGY METHOD 12/11/2024 12:53 PM [facility] MPV 10.0 7.0 - 11.0 FL LAB HEMETOLOGY METHOD 12/11/2024 12:53 PM [facility] NRBC 0.0 <1.0 % LAB HEMETOLOGY METHOD 12/11/2024 12:53 PM [facility] NRBC Absolute 0.00 <0.10 K/mcL LAB HEMETOLOGY METHOD 12/11/2024 12:53 PM [facility] Neutrophils Relative 64.8 % LAB HEMETOLOGY METHOD 12/11/2024 12:53 PM [facility] Lymphocytes Relative 27.0 % LAB HEMETOLOGY METHOD 12/11/2024 12:53 PM [facility] Monocytes Relative 5.9 % LAB HEMETOLOGY METHOD 12/11/2024 12:53 PM [facility] Eosinophils Relative 1.1 % LAB HEMETOLOGY METHOD 12/11/2024 12:53 PM [facility] Basophils Relative 0.7 % LAB HEMETOLOGY METHOD 12/11/2024 12:53 PM [facility] Immature Granulocytes Relative 0.5 % LAB HEMETOLOGY METHOD 12/11/2024 12:53 PM [facility] Neutrophils Absolute 3.60 1.50 - 7.00 K/mcL LAB HEMETOLOGY METHOD 12/11/2024 12:53 PM [facility] Lymphocytes Absolute 1.50 1.00 - 5.00 K/mcL LAB HEMETOLOGY METHOD 12/11/2024 12:53 PM [facility] Monocytes Absolute 0.33 0.20 - 1.00 K/mcL LAB HEMETOLOGY METHOD 12/11/2024 12:[address] [facility] Eosinophils Absolute 0.06 0.00 - 0.50 K/[facility] LAB HEMETOLOGY METHOD 12/11/2024 12:[address] [facility] Basophils Absolute 0.04 0.00 - 0.20 K/[facility] LAB HEMETOLOGY METHOD 12/11/2024 12:[address] [facility] Immature Granulocytes Absolute 0.03 0.00 - 0.03 K/[facility] LAB HEMETOLOGY METHOD 12/11/2024 12:[address] [facility] Blood Venous blood specimen / Unknown Venipuncture / Unknown 12/11/2024 11:17 AM EDT 12/11/2024 11:17 AM EDT us Brianne Rosas [facility] LAB BLOOD ORDERABLES Final Resu lt [facility] [address] [place] [address], [place] [phone] * Rubella antibody IgG (12/11/2024 11:17 AM EDT) Rubella IgG Quant 48.7 >=10.0 I Unit/mL LAB CHEMISTRY METHOD 12/11/2024 5:[address] [facility] Rubella IgG Antibody Interp Positive Positive LAB CHEMISTRY METHOD 12/11/2024 5:[address] [facility] Blood Venous blood specimen / Unknown Venipuncture / Unknown 12/11/2024 11:17 AM EDT 12/11/2024 11:17 AM EDT us Brianne BARROW LAB BLOOD ORDERABLES Final Resu lt [facility] [address] [place] [address], [place] [phone] * Type and screen (12/11/2024 11:17 AM EDT) Pathologist [facility] ABO Group B 12/12/2024 7:[address] [facility] Rh Type Negative 12/12/2024 7:[address] [facility] Antibody Screen Negative 12/12/2024 7:[address] [facility] Blood Venous blood specimen / Unknown Venipuncture / Unknown 12/11/2024 11:17 AM EDT 12/11/2024 11:17 AM EDT us Brianne Rosas CNM LAB BLOOD BANK TEST ORDERABLES Final Result Performing Organization Address [facility]/ZIP Co de Phone Number [facility] [address] [place] [address], * Culture urine (12/11/2024 11:17 AM EDT) [facility] Culture, Urine No growth 12/12/2024 8:[address] [facility] Urine Urine specimen obtained by clean catch procedure / Unknown Non-blood Collection / Unknown 12/11/2024 11:17 AM EDT 12/11/2024 11:17 AM EDT us Brianne Rosas CNM LAB MICROBIOLOGY - GENERAL ORDE RABLES Final Result [facility] [address] [place] [address], [place] [phone] * Varicella zoster antibody IgG (12/11/2024 11:17 AM EDT) [facility] Varicella IgG Positive Positive LAB CHEMISTRY METHOD 12/12/2024 10:[address] [facility] Varicella Zoster IgG 1.89 >=1.00 S/CO LAB CHEMISTRY METHOD 12/12/2024 10:[address] [facility] Blood Venous blood specimen / Unknown Venipuncture / Unknown 12/11/2024 11:17 AM EDT 12/11/2024 11:[address] [facility] - 12/12/2024 10:49 AM EDT Interpretation >= 1.00 S/CO is considered to be consistent with Immunity Brianne Rosas [facility] LAB BLOOD ORDERABLES Final Resu lt [facility] [address] [place] [address], * (ABNORMAL) POC , urine manually resulted (11/13/2024 10:46 AM EDT) HCG, Ur POC Positive(A ) Negative POC hCG Int QC Pass? Yes Yes Urine Urine specimen obtained by clean catch procedure / Unknown 11/13/2024 10:46 AM EDT Deepika Mcgee CN POINT OF CARE TEST ENTER/EDIT ORDERABLES Final Result from Last 3 Months Insurance [facility] [employer] [facility] Advance Directives * Full Code - Default (Latest Code Status on File) Date Activated Date Inactivated Comments 11/13/2024 12:15 AM 11/13/2024 3:56 AM This is ord er is used when code status has not been discussed with the patient, or code status is otherwise unknown/unconfirmed To update the patient's code status, place a code status order. Do not modify or discontinue any currently active code status orders. Care Teams Dental Specialist Relationship Specialty Start Date End Date Latrice Castillo MD [address] [facility] [place] [id number] PCP - General Internal Medicine 12/08/24
[2025-01-29 05:26] VITALS: BP 98/62; PULSE 68; RESP 18; TEMP 36.8; O2SAT 98
== END 2025-01-29 05:27 | disposition home or self-care (01) ==
PROVIDERS: Emergency Provider Emergency Medicine; PCP Internal Medicine
DX: O23.40 Unspecified infection of urinary tract in pregnancy, unspecified trimester (principal); N39.0 Urinary tract infection, site not specified; R10.9 Unspecified abdominal pain
CPT/HCPCS: 81001; 81025; 99282; 99283